=== PATIENT | female | born 1970 | race Caucasian/White ===

== ENCOUNTER 2018-12-11 21:46 | Emergency (ER) | payer OTHER, SELFPAY ==
[2018-12-11 22:26] LABS: Absolute Lymphocytes (CBC) 1.3 K/uL (0.7-4.9); Absolute Monocytes 0.5 K/uL (0.1-1.3); Absolute Neutrophil 2.1 K/uL (1.8-8.0); Basophils % 0.6 % (0-1.3); Eosinophils % 2.2 % (0-4.4); Hematocrit 27.5 % (36.0-45.0); Lymphocytes % 31.4 % (15.3-44.8); MPV 7.5 fL (7.6-11.3); Monocytes % 13.3 % (3.3-12.3)
[2018-12-11 22:29] LABS: Protime INR 0.93
[2018-12-11 22:46] LABS: ALT/SGPT 22 U/L (12-78); AST/SGOT 16 U/L (15-37); Albumin 3.3 g/dL (3.4-5.0); Alkaline Phosphatase 114 U/L (45-117); BUN Blood Urea Nitrogen 10 mg/dL (7-18); Bicarbonate 24 mmol/L (21-32); Bilirubin Direct < 0.1 mg/dL (0-0.2); Bilirubin Total 0.1 mg/dL (0.2-1.0); Glucose Level 69 mg/dL (74-106); Potassium 4.4 mmol/L (3.5-5.1); Protein, Total 6.7 g/dL (6.4-8.2); Sodium Level 144 mmol/L (136-145)
[2018-12-11 23:55] LABS: Anisocytosis 1+; Blood Morphology Comment NOTED (NOT SEEN); Platelet Estimate ADEQ; Urine White Blood Cell Casts OK
[2018-12-12 02:10] LABS: Urine Blood NEGATIVE (NEG); Urine Glucose NEGATIVE (NEG); Urine Protein NEGATIVE (NEG); Urine Specific Gravity <1.005 (1.005-1.030); Urine pH 5.5 (5.0-7.0)
[2018-12-12 02:29] LABS: Barbiturates NEGATIVE (NEGATIVE); Benzodiazepines NEGATIVE (NEGATIVE); Cocaine NEGATIVE (NEGATIVE); METHAMPHETAM NEGATIVE (NEGATIVE); Methadone NEGATIVE (NEGATIVE); Opiates NEGATIVE (NEGATIVE); Phencyclidine NEGATIVE (NEGATIVE); THC Cannibis NEGATIVE (NEGATIVE)
--- NOTE | 2018-12-12 03:11 | ER ---
Nurse's Notes [facility] Name: Edouard Nix Age: 48 yrs Sex: Female : 1970 Arrival Date: 12/11/2018 Time: 21:48 Bed 15 Private MD: Diagnosis: Suicidal ideations Presentation: 12/11 21:58 Presenting complaint: Patient states: I TOOK HALF A BOTTLE OF CELEXA BECAUSE I DONT [facility] WANT TO BE AT [facility] ANY MORE. 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 Transition of care: patient was not received from another setting of care. Onset of symptoms was December 11, 2018. Risk Assessment: Do you want to hurt yourself or someone else? Patient reports desire/thoughts of hurting themselves or someone else. Provider notified. Initial Sepsis Screen: Does the patient meet any 2 criteria? No. Patient's initial sepsis screen is negative. Does the patient have a suspected source of infection? No. Patient's initial sepsis screen is negative. Care prior to arrival: None. 21:58 Method Of Arrival: EMS: [facility] 4 21:58 Acuity: RIANNA 2 ls4 Triage Assessment: 22:18 General: Appears distressed, unkempt, Behavior is cooperative, flat. Pain: Denies pain. ls4 Neuro: Level of Consciousness is awake, alert, Oriented to person, place, time, situation. Cardiovascular: Reports None Denies chest pain, Heart tones S1 S2. Respiratory: Airway is patent Respiratory effort is even, unlabored, Respiratory pattern is regular. Historical: - Allergies: 22:01 Codeine; ls4 22:01 Morphine; ls4 22:01 Cymbalta; ls4 - Home Meds: 22:01 trazodone Oral [Active]; Seroquel Oral [Active]; gabapentin oral oral [Active]; Celexa ls4 Oral [Active]; - Immunization history:: Adult Immunizations up to date. - Social history:: Smoking status: Patient/guardian denies using tobacco. - Ebola Screening: : No symptoms or risks identified at this time. Screenin:20 Abuse screen: Denies threats or abuse. Denies injuries from another. Nutritional ls4 screening: No deficits noted. Tuberculosis screening: No symptoms or risk factors identified. Fall Risk None identified. Assessment: 23:00 General: Appears in no apparent distress. Behavior is calm, cooperative. Pain: Denies ea pain. Neuro: Level of Consciousness is awake, alert, obeys commands, Oriented to person, place, time, situation. Cardiovascular: Patient's skin is warm and dry. Respiratory: Airway is patent Respiratory effort is even, unlabored, Respiratory pattern is regular, symmetrical. Derm: Skin is pink, warm \T\ dry. Musculoskeletal: Circulation, motion, and sensation intact. 12/12 00:55 Reassessment: PT resting with eyes closed, respirations even and unlabored. No s/s of ea pain or discomfort noted at this time. Sitter at bedside. 01:50 Reassessment: Patient and/or family updated on plan of care and expected duration. Pain ea level reassessed. Pt resting with eyes closed. Respirations even and unlabored. No s/s of pain or discomfort noted at this time. Sitter at bedside. 02:00 Reassessment: Patient and/or family updated on plan of care and expected duration. Pain ea level reassessed. Pt resting with eyes closed respirations even and unlabored. Chest expansions even and symmetrical. No s/s of pain or discomfort noted at this time. Sitter remains at bedside. 02:48 Reassessment: Report given to Haleigh MONREAL at [facility]. ea 03:00 Reassessment: Patient and/or family updated on plan of care and expected duration. Pain ea level reassessed. Pt resting with eyes closed, respirations even and unlabored, chest expansions even and symmetrical. No s/s of pain or discomfort noted at this time. Sitter remains at bedside. 03:04 Reassessment: Report given to Kelsy MONREAL at [facility]. ea 04:00 Reassessment: Patient and/or family updated on plan of care and expected duration. Pain ea level reassessed. Pt resting with eyes closed respirations even and unlabored, chest expansions even and symmetrical. No s/s of pain or discomfort noted at this time. Sitter at bedside. 04:31 Reassessment: Report given to Chelle MONREAL at [facility]. ea 05:25 Reassessment: Patient and/or family updated on plan of care and expected duration. Pain ea level reassessed. Patient is alert, oriented x 3, equal unlabored respirations, skin warm/dry/pink. Report given to [facility]. Personal belongings given to EMS. Pt ambulating accompanied by EMS, pt tolerating well. Psych: 12/11 23:00 Subjective: Patient's mood is sad. Objective: Patient is cooperative. Interventions: ea Removed personal items and placed in bag. Patient placed in hospital gown. Suicide Risk Assessment: Sad Person Scale: Substance Abuse:. Safety Checks: Personal items have been removed. Door is open. No visitors are present at this time. Commitment: Patient will be a voluntary commitment. Vital Signs: 22:19 BP 123 / 77; Pulse 92; Resp 18; Temp 98.1(O); Pulse Ox 99% on R/A; Weight 72.57 kg; ls4 Pain 0/10; 12/12 01:30 BP 120 / 60; Pulse 80; Resp 18; Pulse Ox 99% ; ea 05:00 BP 120 / 70; Pulse 78; Resp 18; Temp 97.8; Pulse Ox 99% on R/A; Pain 0/10; ea ED Course: 12/11 21:48 Patient arrived in ED. ds1 21:52 Piyush Cortez PA is PHCP. cp 21:52 Conrad Chao MD is Attending Physician. cp 21:57 Kelsy Arroyo, JOCELIN is Primary Nurse. ls4 21:59 Triage completed. ls4 22:19 Arm band placed on right wrist. EKG completed in triage. Results shown to MD. ls4 22:20 Patient has correct armband on for positive identification. Bed in low position. Call ls4 light in reach. Side rails up X 1. SUICIDE PRECAUTIONS IN PLACE. ONE TO ONE SITTER AT DOOR. ALL BELONGINGS REMOVED. 2 SUITCASES, BACKPACK AND BELONGINGS BAG. POISON CONTROL CALLED. POISON CONTROL SPOKE WITH FLOYD . ADVISES TO CHECK ACET AND ASA AT 0100. PT ON MONITOR AND GIVE FLUIDS. WATCH FOR SIGNS OF SERATONIN SYNDROME. MONITOR QTC AND QRS INTERVALS. 22:32 No provider procedures requiring assistance completed. Inserted saline lock: 18 gauge ls4 in right antecubital area, using aseptic technique. Blood collected. 22:34 secured entrance monitor on. Pulse ox on. NIBP on. ls4 22:34 Initial lab(s) drawn, by me, sent to lab. Urine collected: clean catch specimen, clear, ls4 EKG done, by ED staff, reviewed by Piyush TRUONG. Patient maintains SpO2 saturation greater than 95% on room air. 22:37 Basic Metabolic Panel Sent. ls4 22:37 CBC with Diff Sent. ls4 22:37 Hepatic Function Sent. ls4 22:38 PT-INR Sent. ls4 22:38 Salicylate Sent. ls4 22:38 Urine Drug Screen Sent. ls4 22:38 Acetaminophen Sent. ls4 02 00:54 Paula Liu, RN is Primary Nurse. ea 05:20 IV discontinued, intact, bleeding controlled, No redness/swelling at site. Pressure ea dressing applied. Administered Medications: No medications were administered Outcome: 03:11 ER care complete, transfer ordered by MD. cp 04:00 Instructed on the need for transfer. ea 05:28 Transferred by ground EMS to other acute care facility: [facility]. Transfer form ea completed. 05:29 Condition: stable ea 05:29 Patient left the ED. ea Signatures: Haylee Valdez ds1 Piyush Cortez PA PA cp Antunez, Elena, Kelsy Aguirre RN, ea, RN RN ls4 Corrections: (The following items were deleted from the chart) 12/11 22:32 22:19 BP 123 / 77; Pulse 92bpm; Resp 18bpm; Pulse Ox 99% RA; Temp 98.1F Oral; Pain ls4 0/10; ls4 22:36 22:20 POISON CONTROL SPOKE WITH FLOYD ls4 ls4 12/12 05:29 04:00 Condition: stable ea ea 05:29 04:00 Transferred by ground EMS to other acute care facility: [facility]. Transfer ea form completed. ea
--- NOTE | 2018-12-12 03:11 | EDPHYS ---
Physician Documentation [facility] Name: Edouard iNx Age: 48 yrs Sex: Female : 1970 Arrival Date: 12/11/2018 Time: 21:48 Bed 15 Private MD: ED Physician Conrad Chao HPI: 12/11 21:56 This 48 yrs old Female presents to ER via Unassigned with complaints of cp Suicidal Ideation. 21:56 The patient presents to the emergency department with a history of a suicide gesture, cp where the patient took pills/medications, unknown number of antidepressant: celexa, suicide ideation. 21:56 Onset: The symptoms/episode began/occurred today, about 2100, after dinner. Past cp psychiatric history: the patient has a previous inpatient psychiatric history, last week, at [facility], the patient's last psychiatric treatment was last week. Associated signs and symptoms: Pertinent positives; depression, Pertinent negatives: abdominal pain, chest pain, delusions, hallucinations, headache, homicidal ideation, substance abuse, vomiting. Severity of symptoms: in the emergency department the symptoms are unchanged. Historical: - Allergies: 22:01 Codeine; ls4 22:01 Morphine; ls4 22:01 Cymbalta; ls4 - Home Meds: 22:01 trazodone Oral [Active]; Seroquel Oral [Active]; gabapentin oral oral [Active]; Celexa ls4 Oral [Active]; - Immunization history:: Adult Immunizations up to date. - Social history:: Smoking status: Patient/guardian denies using tobacco. - Ebola Screening: : No symptoms or risks identified at this time. ROS: 22:00 Constitutional: Negative for body aches, chills, fever, poor PO intake. cp 22:00 Eyes: Negative for injury, pain, redness, and discharge. cp 22:00 ENT: Negative for drainage from ear(s), ear pain, sore throat, difficulty swallowing, difficulty handling secretions. 22:00 Cardiovascular: Negative for chest pain, edema, palpitations. 22:00 Respiratory: Negative for cough, shortness of breath, wheezing. 22:00 Abdomen/GI: Negative for abdominal pain, nausea, vomiting, and diarrhea, anorexia, black/tarry stool, rectal bleeding. 22:00 Back: Negative for pain at rest, pain with movement, radiated pain. 22:00 : Negative for urinary symptoms, vaginal bleeding, vaginal discharge. 22:00 Skin: Negative for cellulitis, rash. 22:00 Neuro: Negative for dizziness, headache, syncope, weakness. 22:00 Psych: Positive for depression, suicidal ideation, Negative for auditory hallucinations, visual hallucinations, homicidal ideation. 22:00 All other systems are negative. Exam: 22:15 Constitutional: The patient appears in no acute distress, alert, awake, cp non-diaphoretic, non-toxic, well developed, well nourished. 22:15 Head/Face: Normocephalic, atraumatic. cp 22:15 Eyes: Periorbital structures: appear normal, Pupils: equal, round, and reactive to cp light and accomodation, Extraocular movements: intact throughout, Conjunctiva: normal, no exudate, no injection, Sclera: no appreciated abnormality, Lids and lashes: appear normal, bilaterally. 22:15 ENT: External ear(s): are unremarkable, Ear canal(s): are normal, clear, TM's: bulging, cp is not appreciated, bilaterally, dullness, bilaterally, erythema, is not appreciated, bilaterally, Nose: is normal, Mouth: Lips: moist, Oral mucosa: pink and intact, moist, Posterior pharynx: is normal, airway is patent, no erythema, no exudate, Voice: is normal. 22:15 Neck: ROM/movement: is normal, is supple, without pain, no range of motions limitations, no nuchal rigidity. 22:15 Chest/axilla: Inspection: normal, Palpation: is normal, no crepitus, no tenderness. 22:15 Cardiovascular: Rate: normal, Rhythm: regular, Edema: is not appreciated, JVD: is not appreciated. 22:15 Respiratory: the patient does not display signs of respiratory distress, Respirations: normal, no use of accessory muscles, no retractions, no splinting, no tachypnea, labored breathing, is not present, Breath sounds: are clear throughout, no decreased breath sounds, no stridor, no wheezing. 22:15 Abdomen/GI: Inspection: abdomen appears normal, Palpation: abdomen is soft and non-tender, in all quadrants, Rectal exam: Stool: finley. 22:15 Back: pain, is absent, ROM is normal. 22:15 Skin: cellulitis, is not appreciated, no rash present. 22:15 Neuro: Orientation: to person, place \T\ time. Mentation: is normal, Cerebellar function: is grossly normal, Motor: moves all fours, strength is normal, Sensation: is normal. 12/12 02:11 ECG was reviewed by the Attending Physician. Vital Signs: 12/11 22:19 BP 123 / 77; Pulse 92; Resp 18; Temp 98.1(O); Pulse Ox 99% on R/A; Weight 72.57 kg; ls4 Pain 0/10; 12/12 01:30 BP 120 / 60; Pulse 80; Resp 18; Pulse Ox 99% ; ea 05:00 BP 120 / 70; Pulse 78; Resp 18; Temp 97.8; Pulse Ox 99% on R/A; Pain 0/10; ea MDM: 12/11 21:52 Patient medically screened. 12/12 02:55 Data reviewed: vital signs, nurses notes, lab test result(s), EKG. 02:55 Test interpretation: by ED physician or midlevel provider: ECG. 12/11 21:52 Order name: Acetaminophen cp 12/11 21:52 Order name: Basic Metabolic Panel 12/11 21:52 Order name: CBC with Diff cp 12/11 21:52 Order name: ETOH Level cp 12/11 21:52 Order name: Hepatic Function cp 12/11 21:52 Order name: PT-INR cp 12/11 21:52 Order name: Ptt, Activated cp 12/11 21:52 Order name: Salicylate cp 12/11 21:52 Order name: Urine Drug Screen 12/11 22:30 Order name: CBC with Automated Diff; Complete Time: 01:13 EDMS 12/11 23:48 Interpretation: Normal except: WBC 4.0; RBC 3.60; HGB 8.3; HCT 27.5; MCV 76.4; MCH cp 23.2; MCHC 30.4; RDW 21.2; MPV 7.5; MN% 13.3. 12/11 22:31 Order name: Protime (+INR); Complete Time: 23:47 EDMS 12/11 22:31 Order name: PTT, Activated Partial Thromb; Complete Time: 23:47 EDMS 12/11 22:37 Order name: Salicylates Level; Complete Time: 23:47 EDMS 12/11 22:47 Order name: Basic Metabolic Panel; Complete Time: 23:47 EDMS 12/12 02:19 Interpretation: Normal except: CL 114; GLUC 69; CA 8.1. cp 12/11 22:47 Order name: Liver (Hepatic) Function; Complete Time: 23:47 EDMS 12/12 01:14 Interpretation: Normal except: BILIT 0.1; ALB 3.3; A/G 1.0. cp 12/11 22:47 Order name: Acetaminophen Level; Complete Time: 23:47 EDMS 12/12 01:14 Interpretation: Abnormal: ACETA < 2.0. cp 12/11 22:56 Order name: Alcohol Serum/Plasma; Complete Time: 23:47 EDMS 12/11 23:47 Interpretation: ETOH 4; Reviewed. cp 12/11 23:55 Order name: CBC Smear Scan; Complete Time: 01:13 EDMS 12/12 01:23 Order name: Acetaminophen 12/12 01:23 Order name: Asprin 12/12 01:35 Order name: Hematocrit 12/12 01:35 Order name: Hemoglobin 12/12 02:04 Order name: Urine Dipstick--Ancillary (enter results) tx 12/12 02:04 Order name: Urine --Ancillary (enter results) tx 12/12 02:10 Order name: Urine Dipstick-Ancillary; Complete Time: 02:18 EDMS 12/12 02:19 Order name: Hemoglobin; Complete Time: 02:51 EDMS 12/12 02:51 Interpretation: Reviewed. 12/12 02:19 Order name: Hematocrit; Complete Time: 02:51 EDMS 12/12 02:52 Interpretation: Reviewed. 12/12 02:27 Order name: Salicylates Level; Complete Time: 02:51 EDMS 12/12 02:28 Order name: Test Serum, Qualitat; Complete Time: 02:51 EDMS 12/12 02:29 Order name: Urine Drug Screen; Complete Time: 02:51 EDMS 12/11 21:52 Order name: EKG; Complete Time: 21:53 cp 12/11 21:52 Order name: EKG - Nurse/Tech; Complete Time: 22:43 cp 12/11 21:52 Order name: IV Saline Lock; Complete Time: 22:37 cp 12/11 21:52 Order name: Labs collected and sent; Complete Time: 22:37 cp 12/11 21:52 Order name: Urine Dipstick-Ancillary (obtain specimen); Complete Time: 22:37 cp 12/12 01:23 Order name: EKG; Complete Time: 01:24 cp 12/12 01:23 Order name: EKG - Nurse/Tech; Complete Time: 02:48 cp 12/12 01:24 Order name: Urine Test (obtain specimen); Complete Time: 02:48 cp 12/12 02:36 Order name: Acetaminophen Level; Complete Time: 02:51 EDMS EC:11 Rate is 66 beats/min. Rhythm is regular. CO interval is normal. QRS interval is normal. cp QT interval is normal. T waves are Flattened in lead III. Interpreted by me. Reviewed by me. Administered Medications: No medications were administered Disposition: 20:40 Co-signature as Attending Physician, Conrad Chao MD. Disposition: 12/12/18 03:11 Transfer ordered to Psych Facility. Diagnosis is Suicidal ideations. - Reason for transfer: Higher level of care. - Accepting physician is Doctor. - Condition is Stable. - Problem is new. - Symptoms are unchanged. Signatures: Dispatcher [employer] EDMS Piyush Cortez PA PA cp Antunez, Elena RN Conrad Paredes ea, MD MD Kelsy Arroyo RN RN ls4 Corrections: (The following items were deleted from the chart) : 01:14 Normal except: CL 114; GLUC 69. cp cp 05:29 03:11 12/12/2018 03:11 Transfer ordered to Psych Facility. Diagnosis is Suicidal ea ideations. Reason for transfer: Higher level of care. Accepting physician is Doctor. Condition is Stable. Problem is new. Symptoms are unchanged. cp
--- NOTE | 2018-12-12 09:18 | EKG ---
Test Date: 2018-12-11 Test Time: 22:25:46 Sheet Writer: [id number] MEASUREMENT RESULTS: Intervals: Rate: 75 WV: 134 QRSD: 94 QT: 390 QTc: 435 Calypso: P: 45 WV: 134 QRS: 46 T: -5 INTERPRETIVE STATEMENTS: Normal sinus rhythm Normal ECG No previous ECG available for comparison Electronically Signed On 12-12-18 08:32:57 [employer]ER[employer]IC TILER by Khoi Aleman
== END 2018-12-12 05:29 ==
LOC: ER 21:46
DX: R45.851 Suicidal ideations (principal); F32.9 Major depressive disorder, single episode, unspecified; Z88.5 Allergy status to narcotic agent; Z88.8 Allergy status to other drugs, medicaments and biological substances
CPT/HCPCS: 36415; 80048; 80076; 80307; 80320; 80329; 81003; 84703; 85014; 85018; 85025; 85610; 85730; 93005; 99285

== ENCOUNTER 2019-02-24 09:57 | Emergency (ER) | payer OTHER ==
--- OUTSIDE RECORDS SUMMARY | 2019-02-24 10:00 | XMS REPORT ---
:1970 [facility] [address] [place] [address] Care Team Providers Name Role Phone UNKNOWN, REFFERING Primary Care Provider Unavailable LISA TINEO M.D. Unavailable Unavailable Problems This patient has no known problems. Allergies, Adverse Reactions, Alerts This patient has no known allergies or adverse reactions. Medications This patient has no known medications. Results Test Description Test Time Test Comments Text Results Atomic Results Result Comments POC Glucose, Blood 2017-08-21 10:47:00 Test Item Value Reference Range Comments POC Glucose (test code=POCGLUC) 57 mg/dL 70-115 If you consider your patient critically ill, the Demetra Accu-Chek InformII metershould not be used for Glucose determinations.Draw a venous Glucose and send to the Main Lab for Analysis. Urinalysis [id number] 20:26:00 Test Item Value Reference Range Comments Color (test code=COLOR) Straw Yellow,Straw,Pl yellow Clarity (test code=CLAR) Clear Clear Specific Garrison (test code=SPGR) 1.008 1.001-1.035 pH (test code=PH) 7.0 5.0-9.0 Ketone (test code=KET) Negative mg/dL Negative Glucose (test code=GLUCUR) Negative mg/dL Negative Protein (test code=PROT) Negative mg/dL Negative Bilirubin (test code=BILI) Negative mg/dL Negative Occult Blood (test code=UDOB) Negative Negative Urobilinogen (test code=UROB) 0.2 mg/dL 0.2-1.0 Nitrite (test code=NIT) Negative Negative Leuk Esterase (test code=LEUK) Small Negative Micros Exam (test code=MEXAM) Indicated Epithelial Cells (test code=EPI) 0-2 /LPF 0-30 WBC, Urine (test code=UWBC) 0-1 /HPF 0-5 RBC, Urine (test code=URBC) None Seen /HPF 0-5 Bacteria (test code=BACT) None /HPF POC Glucose, [id number] 11:08:00 Test Item Value Reference Range Comments POC Glucose (test 86 mg/dL 70-115 If you consider your patient code=POCGLUC) critically ill, the Demetra Accu-Chek InformII metershould not be used for Glucose determinations.Draw a venous Glucose and send to the Main Lab for Analysis. Culture, [id number] 08:20:00Specimen: UrineCollected: 08/14/2017 21:15 Status: Final Last Updated: 08/17/2017 08:20 Culture Result (Final) (Final ) 08/16/17 No growth 24 hours 08/17/17 No growth 48 hoursPOC Glucose, [id number] 11:29:00 Test Item Value Reference Range Comments POC Glucose (test code=POCGLUC) 48 mg/dL 70-115 Notify RN or RPR, [id number] 13:54:00 Test Item Value Reference Range Comments RPR (test code=RPR) Non-Reactive Non-Reactive Thyroid Stimulating Hormone (TSH)2017-08-14 07:40:00 Test Item Value Reference Range Comments TSH (test code=TSH) 0.67 mIU/mL 0.270-4.200 Lipid [id number] 07:39:00 Test Item Value Reference Range Comments Cholesterol (test 153 mg/dL 0-200 code=CHOL) Triglycerides (test 110 mg/dL 9-200 code=TRIG) HDL (test code=HDL) 48 mg/dL 50-60 Chol/HDL (test 3.2 Ratio 0.0-4.4 code=CHOLPHDL) LDL, Calculated (test 83 0-130 (NOTE)RISK OF HEART code=LDLC) DISEASEPublished by Bangladeshi Heart AssociationAnalyte Optimal Boderline Increased RiskCHOL <200 200-239 >240TRIG <150 150-199 >200HDL Male: >60 <40HDL Female: >60 <50LDL <100 130-159 >160LDL NEAR OPTIMAL IS 100-129 VLDL (test code=VLDL) 22 mg/dL 5-40 LDL/HDL (test code=LDLPHDL) 2 BHCG, Serum, [id number] 07:24:00 Test Item Value Reference Range Comments Preg Qual [Se] (test code=BSHCG) Negative Negative CBC with [id number] 14:31:00 Test Item Value Reference Range Comments WBC (test code=WBC) 3.1 K/cumm 4.4-10.5 RBC (test code=RBC) 3.66 M/cumm 3.75-5.20 Hemoglobin (test code=HGB) 8.6 gm/dL 12.2-14.8 Hematocrit (test code=HCT) 29.6 % 36.5-44.4 MCV (test code=MCV) 80.8 fL 80-100 MCH (test code=MCH) 23.4 pg 27.0-32.5 MCHC (test code=MCHC) 29.0 g/dL 32.0-37.5 RDW (test code=RDW) 19.2 % 11.5-14.5 Platelet Count (test code=PLTCT) 308 K/cumm 140-440 MPV (test code=MPV) 7.4 fL Diff Method (test code=DIFFM) Auto Neutrophil (test code=NEUT) 64.0 % 36-70 Lymphocyte (test code=LYMPH) 28.2 % 12-44 Monocyte (test code=MONO) 5.7 % 0-11 Eosinophil (test code=EOS) 1.8 % 0-7 Basophil (test code=BASO) 0.2 % 0-2 Neutro Abs (test code=ANEUT) 2.0 K/cumm 1.6-7.4 Lymph Abs (test code=ALYMPH) 0.9 K/cumm 0.5-4.6 Douglas Abs (test code=AMONO) 0.2 K/cumm 0.0-1.2 Eos Abs (test code=AEOS) 0.06 K/cumm 0.00-0.74 Baso Abs (test code=ABASO) 0.0 K/cumm 0.00-0.21 Anisocytosis (test code=ANISO) Slight Microcytosis (test code=MICRO) Slight Hypochromic (test code=HYPO) Slight Urinalysis [id number] 14:29:00 Test Item Value Reference Range Comments Color (test code=COLOR) Yellow Yellow,Straw,Pl yellow Clarity (test code=CLAR) Clear Clear Specific Garrison (test code=SPGR) 1.017 1.001-1.035 pH (test code=PH) 6.5 5.0-9.0 Ketone (test code=KET) Negative mg/dL Negative Glucose (test code=GLUCUR) Negative mg/dL Negative Protein (test code=PROT) Negative mg/dL Negative Bilirubin (test code=BILI) Negative mg/dL Negative Occult Blood (test code=UDOB) Negative Negative Urobilinogen (test code=UROB) 1.0 mg/dL 0.2-1.0 Nitrite (test code=NIT) Negative Negative Leuk Esterase (test code=LEUK) Large Negative Micros Exam (test code=MEXAM) Indicated Epithelial Cells (test code=EPI) 3-5 /LPF 0-30 WBC, Urine (test code=UWBC) 10-14 /HPF 0-5 RBC, Urine (test code=URBC) 0-3 /HPF 0-5 Bacteria (test code=BACT) Few /HPF Comprehensive Metabolic [id number] 14:26:00 Test Item Value Reference Range Comments Sodium (test code=NA) 142 mmol/L 135-145 Potassium (test code=K) 3.7 mmol/L 3.5-5.1 Chloride (test code=CL) 104 mmol/L 98-105 Carbon Dioxide (test 28 mmol/L 22-29 code=CO2) Glucose (test code=GLU) 86 mg/dL 70-115 Blood Urea Nitrogen 11 mg/dL 6-20 (test code=BUN) Creatinine (test 0.7 mg/dL 0.5-0.9 code=CREAT) Calcium (test code=CA) 9.2 mg/dL 8.3-10.5 Prot Total (test 6.9 g/dL 6.4-8.3 code=TP) Albumin (test code=ALB) 4.1 g/dL 3.5-5.2 A/G Ratio (test 1.5 Ratio code=AGRATIO) Globulin (test 2.8 2.9-3.1 code=GLOB) Bili Total (test <0.1 mg/dL 0.1-0.9 code=TBIL) Alk Phos (test 112 U/L 35-104 code=APHOS) AST (test code=AST) 23 U/L 1-32 ALT (test code=ALT) 15 U/L 1-33 BUN/Creatinine Ratio 15.7 (test code=BCRATIO) Anion Gap (test 10 mmol/L 7-16 code=AGAP) Estimated GFR (test >60 mL/min/1.73m2 eGFR (estimated Glomerular code=GFR) Filtration Rate) is an estimated value,calculated from the patient's serum creatinine using the MDRD equation.It is NOT the patient's actual GFR. The eGFR provides a more clinicallyuseful measure of kidney disease than serum creatinine alone.This calculation takes sex and race into account, if the informationis provided. If the race is not provided, and the patient isAfrican-Bangladeshi, multiply by 1.212. If sex is not provided, and thepatient is female, multiply by 0.742. Results for patients <18 years ofage have not been validated by the MDRD study and should be interpretedwith caution.eGFR Result Interpretation:eGFR > or=60 is in the Normal RangeeGFR < 60 may mean kidney diseaseeGFR < 15 may mean kidney failureRanges recommended by the National Kidney Foundation,http://nkdep.nih .gov [id number] 14:22:00 Test Item Value Reference Range Comments Amphetamine (test code=AMPH) Negative Negative For diagnostic purposes only, positive results should always be assessedin conjunctionwith the patient's medical history,clinical examination and otherfindings.To fulfill legal requirements, a more specific alternate chemical methodmust be used inorder to obtain a Confirmed analytical result. GC/MS is the preferred confirmatory method. Barbiturates (test code=KELSIE) Negative Negative Benzodiazepine (test Negative Negative code=EPIFANIO) Cocaine (test code=COCA) Negative Negative Methadone (test code=MTHD) Negative Negative Opiates (test code=OPIA) Negative Negative PCP (test code=PCP) Negative Negative Propoxyphene (test Negative Negative code=PROPOX) THC (test code=THC) Negative Negative Alcohol, Urine (test <0.01 g/dL 0.00-0.01 code=ETOHU)
[2019-02-24 10:29] LABS: Protime INR 0.9
[2019-02-24 10:33] LABS: Absolute Monocytes 0.5 K/uL (0.1-1.3); Absolute Neutrophil 1.4 K/uL (1.8-8.0); Basophils % 0.9 % (0-1.3); Eosinophils % 3.3 % (0-4.4); Hematocrit 26.5 % (36.0-45.0); Lymphocytes % 32.6 % (15.3-44.8); Monocytes % 16.9 % (3.3-12.3); RBC Red Blood Cell Count 3.62 M/uL (3.86-4.86)
--- NOTE | 2019-02-24 10:34 | RAD REPORT ---
EXAM DESCRIPTION: RAD - Chest Single View - 02/24/2019 10:27 am CLINICAL HISTORY: Shortness of breath, hypoglycemia COMPARISON: None. TECHNIQUE: AP portable chest image was obtained 1025 hours . FINDINGS: No focal infiltrate or mass. Interstitial markings are prominent with the baseline for the patient unknown. Minimal interstitial edema or infiltrate could be masked. A significant acute lung parenchymal process is doubtful. Heart and vasculature are normal. No measurable pleural effusion and no pneumothorax. No acute bony abnormality seen. No acute aortic findings suspected. IMPRESSION: No acute cardiopulmonary process. Interstitial markings are prominent but favored to be baseline for the patient. No comparison was benjamin ilable.
[2019-02-24] MEDS ORDERED: NA CHLORIDE 0.9% 1,000 ML ONE (10:40)
[2019-02-24 11:01] LABS: ALT/SGPT 24 U/L (12-78); AST/SGOT 25 U/L (15-37); Albumin 3.2 g/dL (3.4-5.0); Alkaline Phosphatase 102 U/L (45-117); BUN Blood Urea Nitrogen 10 mg/dL (7-18); Bicarbonate 27 mmol/L (21-32); Bilirubin Direct < 0.1 mg/dL (0-0.2); Bilirubin Total 0.2 mg/dL (0.2-1.0); Glucose Level 60 mg/dL (74-106); Magnesium 2.3 mg/dL (1.8-2.4); NT PRO-BNP 117 pg/mL (<125); Potassium 3.8 mmol/L (3.5-5.1); Protein, Total 6.4 g/dL (6.4-8.2); Sodium Level 143 mmol/L (136-145); Troponin (Emerg Dept Use Only) < 0.02 ng/mL (0.0-0.045)
[2019-02-24 11:15] LABS: Anisocytosis 1+; Blood Morphology Comment NOTED (NOT SEEN); Platelet Estimate ADEQ
[2019-02-24 11:16] LABS: Rouleau NOTED
--- NOTE | 2019-02-24 13:33 | ER ---
Nurse's Notes [facility] Name: Edouard Nix Age: 48 yrs Sex: Female : 1970 Arrival Date: 02/24/2019 Time: 10:00 Bed 6 Private MD: Diagnosis: Hypoglycemia, unspecified;Weakness;Hypotension;Anemia, unspecified Presentation: 02/24 09:56 Presenting complaint: EMS states: called out at [facility] for hypoglycemia. Staff sv stated BS was 27 and was able to get her to drink OJ with sugar and BS went to 72. On EMS arrival BS-72 BP 93/57 HR-55, RR-12 97% RA. Transition of care: patient was not received from another setting of care. Onset of symptoms was February 24, 2019. Risk Assessment: Do you want to hurt yourself or someone else? Patient reports no desire to harm self or others. Initial Sepsis Screen: Does the patient meet any 2 criteria? No. Patient's initial sepsis screen is negative. Does the patient have a suspected source of infection? No. Patient's initial sepsis screen is negative. Care prior to arrival: Glucose check: 72. 09:56 Method Of Arrival: EMS: [facility] sv 10:02 Acuity: RIANNA 2 sv Historical: - Allergies: 10:08 Codeine; sv 10:08 Cymbalta; sv 10:08 Morphine; sv 10:08 ambien; sv 10:08 PENICILLINS; sv - Home Meds: 10:36 Celexa 40 mg oral tab once daily [Active]; hydroxyzine HCl 50 mg Oral tab Q6h prn sv [Active]; Seroquel 300 mg oral tab nightly [Active]; trazodone 100 mg oral tab QHS prn [Active]; gabapentin 600 mg oral tab 3 times per day [Active]; - PMHx: 10:08 Osteoporosis; Dumping syndrome; Non-hodgkins lymphoma; sv - PSHx: 10:08 stomach removed; sv - Immunization history:: Adult Immunizations up to date. - Family history:: not pertinent. - Social history:: Smoking status: unknown. - Ebola Screening: : No symptoms or risks identified at this time. Screenin:10 Abuse screen: Denies threats or abuse. Denies injuries from another. Nutritional sv screening: No deficits noted. Tuberculosis screening: No symptoms or risk factors identified. Fall Risk None identified. Assessment: 10:20 Reassessment: Patient appears in no apparent distress at this time. No changes from sv previously documented assessment. Patient and/or family updated on plan of care and expected duration. Pain level reassessed. Patient is alert, oriented x 3, equal unlabored respirations, skin warm/dry/pink. Pt given a breakfast tray. 11:15 Reassessment: Patient appears in no apparent distress at this time. No changes from sv previously documented assessment. Patient and/or family updated on plan of care and expected duration. Pain level reassessed. Patient is alert, oriented x 3, equal unlabored respirations, skin warm/dry/pink. 12:34 Reassessment: Patient appears in no apparent distress at this time. Patient and/or sv family updated on plan of care and expected duration. Pain level reassessed. Patient is alert, oriented x 3, equal unlabored respirations, skin warm/dry/pink. Pt given lunch tray. 13:51 Reassessment: Patient is alert, oriented x 3, equal unlabored respirations, skin aa5 warm/dry/pink. Awaiting on transportation back to [facility]. . Vital Signs: 10:08 BP 87 / 60; Pulse 58; Resp 16; Pulse Ox 96% ; Weight 72.57 kg; Height 5 ft. 10 in. sv (177.80 cm); Pain 0/10; 10:10 Temp 97.5(TE); em1 11:00 BP 89 / 56; Pulse 56 MON; Resp 16; Pulse Ox 98% on R/A; sv 11:21 BP 90 / 62; Pulse 57; Resp 12; Pulse Ox 97% ; sv 12:08 BP 89 / 61; Pulse 53; Resp 12; Pulse Ox 95% ; sv 13:33 BP 114 / 71; Pulse 57; Resp 13; Pulse Ox 97% on R/A; em1 13:51 BP 113 / 68; Pulse 60; Resp 16 S; Temp 97.8(TE); Pulse Ox 99% on R/A; Pain 0/10; aa5 10:08 Body Mass Index 22.96 (72.57 kg, 177.80 cm) sv 11:00 Sinus bradycardia sv 11:21 Sinus bradycardia sv ED Course: 10:00 Patient arrived in ED. bd 10:00 Deborah Cullen, JOCELIN is Primary Nurse. sv 10:00 Piyush Ortega MD is Attending Physician. madeleine 10:03 Triage completed. sv 10:06 EKG done, by career and technology education teacher. reviewed by Piyush Ortega MD. at1 10:09 Initial lab(s) drawn, by mo, sent to lab. Inserted saline lock: 20 gauge in right em1 forearm, using aseptic technique. Blood collected. 10:10 Warm blanket given. em1 10:10 Patient has correct armband on for positive identification. Bed in low position. Call sv light in reach. Side rails up X2. stamp machine servicer on. Pulse ox on. NIBP on. Head of bed elevated. 10:10 Arm band placed on. sv 10:11 Basic Metabolic Panel Sent. sv 10:16 Diet tray given. em1 10:22 X-ray(s) taken. sv 10:25 X-ray completed. Portable x-ray completed in exam room. Patient tolerated procedure mh1 well. 10:26 XRAY Chest (1 view) In Process Unspecified. EDMS 12:57 Warm blanket given. Diet tray given. em1 13:17 orthostatics : laying ; 114/73 83 sitting : 131/77 94 standing : 138/77 97. kj1 13:51 No provider procedures requiring assistance completed. IV discontinued, intact, aa5 bleeding controlled, No redness/swelling at site. Pressure dressing applied. Administered Medications: 10:31 Drug: NS 0.9% 1000 ml Route: IV; Rate: 1 bolus; Site: right forearm; sv 12:10 Follow up: Response: No adverse reaction; IV Status: Completed infusion; IV Intake: sv 1000ml Point of Care Testing: Blood Glucose: 10:02 Blood Glucose: 78 mg/dL; sv 11:15 Blood Glucose: 138 mg/dL; sv 12:34 Blood Glucose: 84 mg/dL; sv 13:33 Blood Glucose: 114 mg/dL; em1 Ranges: Intake: 12:10 IV: 1000ml; Total: 1000ml. sv Outcome: 13:32 Discharge ordered by . madeleine 13:53 Discharged to [facility]hab [facility] aa5 13:53 Condition: improved 13:53 Discharge instructions given to patient, Instructed on discharge instructions, follow up and referral plans. Demonstrated understanding of instructions, follow-up care. 14:02 Patient left the ED. sv Signatures: Dispatcher [employer] EDMS Madhuri Noe Stephanie, RN RN sv Anderson, Corey, MD MD cha Harvey, Martha 1 Angelo Emanuel 1 Marly Braden RN RN aa5 Marilee Rodney, employee benefits administrator EKG Tat1 Dimple Patricia kj1 Corrections: (The following items were deleted from the chart) 11:21 11:11 BP 89 / 56; Pulse 56bpm; Monitor: Sinus bradycardiaResp 16bpm; Pulse Ox 98% RA; svsv
--- NOTE | 2019-02-24 13:33 | EDPHYS ---
Physician Documentation [facility] Name: Edouard Nix Age: 48 yrs Sex: Female : 1970 Arrival Date: 02/24/2019 Time: 10:00 Bed 6 Private MD: ED Physician Piyush Ortega HPI: 02/24 10:22 This 48 yrs old Female presents to ER via EMS with complaints of Low Blood madeleine Sugar, Hypotension. 10:22 The patient or guardian reports hypoglycemia. Onset: The symptoms/episode madeleine began/occurred this morning, today. Associated signs and symptoms: Pertinent positives: None. Current symptoms: In the emergency department the patient's symptoms have improved. The patient has experienced similar episodes in the past, several times. Historical: - Allergies: 10:08 Codeine; sv 10:08 Cymbalta; sv 10:08 Morphine; sv 10:08 ambien; sv 10:08 PENICILLINS; sv - Home Meds: 10:36 Celexa 40 mg oral tab once daily [Active]; hydroxyzine HCl 50 mg Oral tab Q6h prn sv [Active]; Seroquel 300 mg oral tab nightly [Active]; trazodone 100 mg oral tab QHS prn [Active]; gabapentin 600 mg oral tab 3 times per day [Active]; - PMHx: 10:08 Osteoporosis; Dumping syndrome; Non-hodgkins lymphoma; sv - PSHx: 10:08 stomach removed; sv - Immunization history:: Adult Immunizations up to date. - Family history:: not pertinent. - Social history:: Smoking status: unknown. - Ebola Screening: : No symptoms or risks identified at this time. ROS: 10:22 Constitutional: Negative for fever, chills, and weight loss, Eyes: Negative for injury, madeleine pain, redness, and discharge, ENT: Negative for injury, pain, and discharge, Neck: Negative for injury, pain, and swelling, Cardiovascular: Negative for chest pain, palpitations, and edema, Respiratory: Negative for shortness of breath, cough, wheezing, and pleuritic chest pain, Abdomen/GI: Negative for abdominal pain, nausea, vomiting, diarrhea, and constipation, Back: Negative for injury and pain, : Negative for injury, bleeding, discharge, and swelling, MS/Extremity: Negative for injury and deformity, Skin: Negative for injury, rash, and discoloration, Psych: Negative for depression, anxiety, suicide ideation, homicidal ideation, and hallucinations, Allergy/Immunology: Negative for hives, rash, and allergies, Endocrine: Negative for neck swelling, polydipsia, polyuria, polyphagia, and marked weight changes, Hematologic/Lymphatic: Negative for swollen nodes, abnormal bleeding, and unusual bruising. 10:22 Neuro: Positive for weakness. Exam: 10:22 Constitutional: This is a well developed, well nourished patient who is awake, alert, madeleine and in no acute distress. Head/Face: Normocephalic, atraumatic. Eyes: Pupils equal round and reactive to light, extra-ocular motions intact. Lids and lashes normal. Conjunctiva and sclera are non-icteric and not injected. Cornea within normal limits. Periorbital areas with no swelling, redness, or edema. ENT: Nares patent. No nasal discharge, no septal abnormalities noted. Tympanic membranes are normal and external auditory canals are clear. Oropharynx with no redness, swelling, or masses, exudates, or evidence of obstruction, uvula midline. Mucous membranes moist. Neck: Trachea midline, no thyromegaly or masses palpated, and no cervical lymphadenopathy. Supple, full range of motion without nuchal rigidity, or vertebral point tenderness. No Meningismus. Chest/axilla: Normal chest wall appearance and motion. Nontender with no deformity. No lesions are appreciated. Cardiovascular: Regular rate and rhythm with a normal S1 and S2. No gallops, murmurs, or rubs. Normal PMI, no JVD. No pulse deficits. Respiratory: Lungs have equal breath sounds bilaterally, clear to auscultation and percussion. No rales, rhonchi or wheezes noted. No increased work of breathing, no retractions or nasal flaring. Abdomen/GI: Soft, non-tender, with normal bowel sounds. No distension or tympany. No guarding or rebound. No evidence of tenderness throughout. Back: No spinal tenderness. No costovertebral tenderness. Full range of motion. Skin: Warm, dry with normal turgor. Normal color with no rashes, no lesions, and no evidence of cellulitis. MS/ Extremity: Pulses equal, no cyanosis. Neurovascular intact. Full, normal range of motion. Neuro: Awake and alert, GCS 15, oriented to person, place, time, and situation. Cranial nerves II-XII grossly intact. Motor strength 5/5 in all extremities. Sensory grossly intact. Cerebellar exam normal. Normal gait. Psych: Awake, alert, with orientation to person, place and time. Behavior, mood, and affect are within normal limits. 10:24 Musculoskeletal/extremity: DVT Exam: No signs of deep vein thrombosis. no pain, no madeleine swelling, no tenderness, negative Homans' sign noted on exam, no appreciated bluish discoloration, no erythema, no increased warmth. Vital Signs: 10:08 BP 87 / 60; Pulse 58; Resp 16; Pulse Ox 96% ; Weight 72.57 kg; Height 5 ft. 10 in. sv (177.80 cm); Pain 0/10; 10:10 Temp 97.5(TE); em1 11:00 BP 89 / 56; Pulse 56 MON; Resp 16; Pulse Ox 98% on R/A; sv 11:21 BP 90 / 62; Pulse 57; Resp 12; Pulse Ox 97% ; sv 12:08 BP 89 / 61; Pulse 53; Resp 12; Pulse Ox 95% ; sv 13:33 BP 114 / 71; Pulse 57; Resp 13; Pulse Ox 97% on R/A; em1 13:51 BP 113 / 68; Pulse 60; Resp 16 S; Temp 97.8(TE); Pulse Ox 99% on R/A; Pain 0/10; aa5 10:08 Body Mass Index 22.96 (72.57 kg, 177.80 cm) sv 11:00 Sinus bradycardia sv 11:21 Sinus bradycardia sv MDM: 10:12 Patient medically screened. [facility] 10:23 Data reviewed: vital signs, nurses notes, lab test result(s), EKG, radiologic studies, madeleine plain films. 02/24 10:01 Order name: Basic Metabolic Panel 02/24 10:01 Order name: CBC with Diff; Complete Time: 12:04 02/24 10:01 Order name: LFT's; Complete Time: 12:04 sv 02/24 10:01 Order name: Magnesium; Complete Time: 12:04 sv 02/24 10:01 Order name: NT PRO-BNP; Complete Time: 12:04 sv 02/24 10:01 Order name: PT-INR; Complete Time: 12:04 02/24 10:01 Order name: Troponin (emerg Dept Use Only); Complete Time: 12:04 sv 02/24 10:02 Order name: Basic Metabolic Panel; Complete Time: 12:04 EDMS 02/24 10:18 Order name: glucometer results - FOR PT WITH NO ID aa5 02/24 11:15 Order name: Manual Differential; Complete Time: 12:04 EDMS 02/24 12:46 Order name: Urine Dipstick--Ancillary (enter results) em1 02/24 12:55 Order name: TSH madeleine 02/24 13:33 Order name: Glucose, Ancillary Testing EDMS 02/24 13:33 Order name: Glucose, Ancillary Testing EDMS 02/24 10:01 Order name: XRAY Chest (1 view); Complete Time: 12:04 sv 02/24 10:01 Order name: EKG; Complete Time: 10:03 sv 02/24 10:01 Order name: Cardiac monitoring; Complete Time: 10:11 sv 02/24 10:01 Order name: EKG - Nurse/Tech; Complete Time: 10:11 sv 02/24 10:01 Order name: IV Saline Lock; Complete Time: 10:11 sv 02/24 10:01 Order name: Labs collected and sent; Complete Time: 10: sv 02/24 10:01 Order name: O2 Per Protocol; Complete Time: 10:02 sv 02/24 10:01 Order name: O2 Sat Monitoring; Complete Time: 10:02 sv 02/24 10:01 Order name: Diet Ada 2000 Brian; Complete Time: 10:03 sv 02/24 12:09 Order name: Diet Ada 2000 Brian; Complete Time: 12:10 sv 02/24 12:46 Order name: Orthostatics; Complete Time: 13:16 [facility] 02/24 12:47 Order name: Blood Glucose Level; Complete Time: 12:59 madeleine 02/24 13:33 Order name: Glucose, Ancillary Testing EDMS Administered Medications: 10:31 Drug: NS 0.9% 1000 ml Route: IV; Rate: 1 bolus; Site: right forearm; sv 12:10 Follow up: Response: No adverse reaction; IV Status: Completed infusion; IV Intake: sv 1000ml Point of Care Testing: Blood Glucose: 10:02 Blood Glucose: 78 mg/dL; sv 11:15 Blood Glucose: 138 mg/dL; sv 12:34 Blood Glucose: 84 mg/dL; sv 13:33 Blood Glucose: 114 mg/dL; em1 Ranges: Critical Glucose Levels:Adult <50 mg/dl or >400 mg/dl <40 mg/dl or >180 mg/dl Disposition: 02/24/19 13:32 Discharged to Home. Impression: Hypoglycemia, unspecified, Weakness, Hypotension, Anemia, unspecified. - Condition is Stable. - Discharge Instructions: Hypoglycemia, Hypotension, Weakness, Fatigue, Blood Glucose Monitoring, Adult, Hypotension, Gdzo-vx-[id number], Weakness, Blrb-bq-Ffvr, Hypoglycemia, Verx-tw-Thzz. - Medication Reconciliation Form, Thank You Letter, Antibiotic Education, Prescription Opioid Use form. - Follow up: Private Physician; When: 2 - 3 days; Reason: Recheck today's complaints, Continuance of care, Re-evaluation by your physician. - Problem is new. - Symptoms have improved. Signatures: Dispatcher [employer] Deborah Amaya RN RN sv Anderson, Corey, MD MD cha Corrections: (The following items were deleted from the chart) 14:02 13:32 02/24/2019 13:32 Discharged to Home. Impression: Hypoglycemia, unspecified; sv Weakness; Hypotension; Anemia, unspecified. Condition is Stable. Discharge Instructions: Hypoglycemia, Hypotension, Weakness, Fatigue, Blood Glucose Monitoring, Adult, Hypotension, Nezv-vg-Qgza, Weakness, Oabc-gt-Exoi, Hypoglycemia, Tedc-bu-Ddfi. Forms are Medication Reconciliation Form, Thank You Letter, Antibiotic Education, Prescription Opioid Use. Follow up: Private Physician; When: 2 - 3 days; Reason: Recheck today's complaints, Continuance of care, Re-evaluation by your physician. Problem is new. Symptoms have improved. madeleine
[2019-02-24 14:37] LABS: Urine Blood NEGATIVE (NEG); Urine Glucose NEGATIVE (NEG); Urine Protein NEGATIVE (NEG); Urine Specific Gravity <1.005 (1.005-1.030)
--- NOTE | 2019-02-24 18:25 | EKG ---
Test Date: 2019-02-24 Test Time: 10:06:03 Material Movers: ARTHUR MEASUREMENT RESULTS: Intervals: Rate: 56 CA: 144 QRSD: 98 QT: 452 QTc: 436 [place]: P: 26 CA: 144 QRS: 24 T: 29 INTERPRETIVE STATEMENTS: Sinus bradycardia Otherwise normal ECG Compared to ECG 12/12/2018 02:02:54 Sinus rhythm no longer present Electronically Signed On 02-24-19 18:23:32 CDT by Rubin Robledo
== END 2019-02-24 14:02 | disposition home or self-care (01) ==
LOC: ER 09:57
DX: E16.2 Hypoglycemia, unspecified (principal); I95.9 Hypotension, unspecified; D64.9 Anemia, unspecified; K91.1 Postgastric surgery syndromes; Z88.0 Allergy status to penicillin; Z88.5 Allergy status to narcotic agent; Z88.8 Allergy status to other drugs, medicaments and biological substances; Z85.72 Personal history of non-Hodgkin lymphomas
CPT/HCPCS: 96361; 93005; 85025; 80048; 36415; 83735; 85610; 82962 ×4; 80076; 84443; 81003; 84484; 83880; 71045; 96360; 99285; J7030

== ENCOUNTER 2019-02-26 12:18 | Emergency (ER) | payer OTHER ==
--- OUTSIDE RECORDS SUMMARY | 2019-02-26 12:21 | XMS REPORT ---
:1970 [facility] Address [address] [place] [address] Care Team Providers Name Role Phone UNKNOWN, [...] to the Main Lab for Analysis. Urinalysis [id number] 20:26:00 Test Item Value Reference Range Comments Color (test code=COLOR) Straw Yellow,Straw,Pl yellow Clarity (test code=CLAR) Clear Clear Specific [place] (test code=SPGR) 1.008 1.001-1.035 pH (test code=PH) [...] Bacteria (test code=BACT) None /HPF POC Glucose, [id number] 11:08:00 Test Item Value Reference Range Comments POC Glucose (test 86 mg/dL 70-115 If you consider your patient code=POCGLUC) critically ill, the Demetra Accu-Chek InformII metershould not be used for Glucose determinations.Draw a venous Glucose and send to the Main Lab for Analysis. Culture, [id number] 08:20:00Specimen: UrineCollected: 08/14/2017 21:15 Status: Final Last Updated: 08/17/2017 08:20 Culture Result (Final) (Final ) 08/16/17 No growth 24 hours 08/17/17 No growth 48 hoursPOC Glucose, [id number] 11:29:00 Test Item Value Reference Range Comments POC Glucose (test code=POCGLUC) 48 mg/dL 70-115 Notify RN or RPR, [id number] 13:54:00 Test Item Value Reference Range Comments RPR (test code=RPR) Non-Reactive Non-Reactive Thyroid Stimulating Hormone (TSH)2017-08-14 07:40:00 Test Item Value Reference Range Comments TSH (test code=TSH) 0.67 mIU/mL 0.270-4.200 Lipid [id number] 07:39:00 Test Item Value Reference Range Comments Cholesterol (test 153 mg/dL 0-200 code=CHOL) Triglycerides (test 110 mg/dL 9-200 code=TRIG) HDL (test code=HDL) 48 mg/dL 50-60 Chol/HDL (test 3.2 Ratio 0.0-4.4 code=CHOLPHDL) LDL, Calculated (test 83 0-130 (NOTE)RISK OF HEART code=LDLC) DISEASEPublished by [place] Heart AssociationAnalyte Optimal Boderline Increased RiskCHOL <200 200-239 >240TRIG <150 150-199 >200HDL Male: >60 <40HDL Female: >60 <50LDL <100 130-159 >160LDL NEAR OPTIMAL IS 100-129 VLDL (test code=VLDL) 22 mg/dL 5-40 LDL/HDL (test code=LDLPHDL) 2 BHCG, Serum, [id number] 07:24:00 Test Item Value Reference Range Comments Preg Qual [Se] (test code=BSHCG) Negative Negative CBC with [id number] 14:31:00 Test Item Value Reference Range Comments [...] Lymph Abs (test code=ALYMPH) 0.9 K/cumm 0.5-4.6 [place] Abs (test code=AMONO) 0.2 K/cumm 0.0-1.2 Eos Abs (test code=AEOS) 0.06 K/cumm 0.00-0.74 Baso Abs (test code=ABASO) 0.0 K/cumm 0.00-0.21 Anisocytosis (test code=ANISO) Slight Microcytosis (test code=MICRO) Slight Hypochromic (test code=HYPO) Slight Urinalysis [id number] 14:29:00 Test Item Value Reference Range Comments Color (test code=COLOR) Yellow Yellow,Straw,Pl yellow Clarity (test code=CLAR) Clear Clear Specific [place] (test code=SPGR) 1.017 1.001-1.035 pH (test code=PH) [...] Bacteria (test code=BACT) Few /HPF Comprehensive Metabolic [id number] 14:26:00 Test Item Value Reference Range Comments [...] race is not provided, and the patient isAfrican-Bermudian, multiply by 1.212. If sex is not provided, and thepatient is female, multiply by 0.742. Results for patients <18 years ofage have not been validated by the MDRD study and should be interpretedwith caution.eGFR Result Interpretation:eGFR > or=60 is in the Normal RangeeGFR < 60 may mean kidney diseaseeGFR < 15 may mean kidney failureRanges recommended by the National Kidney Foundation,http://nkdep.nih .gov [id number] 14:22:00 Test Item Value Reference Range Comments [...]
[2019-02-26 13:09] LABS: Absolute Lymphocytes (CBC) 0.9 K/uL (0.7-4.9); Absolute Monocytes 0.5 K/uL (0.1-1.3); Absolute Neutrophil 2.3 K/uL (1.8-8.0); Basophils % 0.5 % (0-1.3); Eosinophils % 2.5 % (0-4.4); Hematocrit 26.1 % (36.0-45.0); Lymphocytes % 22.7 % (15.3-44.8); MPV 8.1 fL (7.6-11.3); Monocytes % 12.2 % (3.3-12.3); RBC Red Blood Cell Count 3.57 M/uL (3.86-4.86)
[2019-02-26 13:16] LABS: ALT/SGPT 25 U/L (12-78); AST/SGOT 28 U/L (15-37); Albumin 3.2 g/dL (3.4-5.0); Alkaline Phosphatase 105 U/L (45-117); BUN Blood Urea Nitrogen 11 mg/dL (7-18); Bicarbonate 29 mmol/L (21-32); Bilirubin Total 0.1 mg/dL (0.2-1.0); Glucose Level 69 mg/dL (74-106); Potassium 3.9 mmol/L (3.5-5.1); Protein, Total 6.6 g/dL (6.4-8.2); Sodium Level 143 mmol/L (136-145)
[2019-02-26 13:38] LABS: Anisocytosis 1+; Blood Morphology Comment NOTED (NOT SEEN); Hypochromasia 1+; Platelet Estimate ADEQ; Platelets, Giant FEW
[2019-02-26 14:55] LABS: Urine Blood NEGATIVE (NEG); Urine Glucose NEGATIVE (NEG); Urine Protein NEGATIVE (NEG); Urine pH 6.5 (5.0-7.0)
[2019-02-26] MEDS ORDERED: NA CHLORIDE 0.9% 1,000 ML ONE (15:23)
--- NOTE | 2019-02-26 17:01 | EDPHYS ---
Physician Documentation [facility] Name: Edouard Nix Age: 48 yrs Sex: Female : 1970 Arrival Date: 02/26/2019 Time: 12:15 Bed 20 Private MD: ED Physician Benoit Barroso HPI: 02/26 14:05 This 48 yrs old Female presents to ER via EMS with complaints of Low Blood pm1 Sugar. 14:05 The patient or guardian reports hypoglycemia, that was potentially precipitated by Not pm1 eating enough. Patient typically eats throughout the day at home but she is currently in drug/addiction rehab. Onset: The symptoms/episode began/occurred today. Associated signs and symptoms: Pertinent negatives: None. Current symptoms: In the emergency department the patient's symptoms have improved. The patient has experienced similar episodes in the past, multiple times. The patient has been recently seen at the [facility] Emergency Department, this week, for similar complaints labs were performed, X-rays were performed. Patient without stomach and duodenum due o cancer. therefore patient with history of hypoglycemia that is avoided by patient eating/snacking throughout the day. Patient is currently in addiction/drug rehabilitation therefore she is unable to eat throughout the day easily. Historical: - Allergies: 12:18 ambien; sv 12:18 Codeine; sv 12:18 Cymbalta; sv 12:18 Morphine; sv 12:18 PENICILLINS; sv 12:18 Ibuprofen; sv - PMHx: 12:18 dumping syndrome; Non-Hodgkins Lymphoma; Osteoporosis; sv - PSHx: 12:18 stomach removed; sv - Immunization history:: Adult Immunizations up to date. - Social history:: Smoking status: Patient/guardian denies using tobacco. - Ebola Screening: : No symptoms or risks identified at this time. ROS: 14:05 Constitutional: Negative for fever, chills, and weight loss, Eyes: Negative for injury, pm1 pain, redness, and discharge, ENT: Negative for injury, pain, and discharge, Neck: Negative for injury, pain, and swelling, Cardiovascular: Negative for chest pain, palpitations, and edema, Respiratory: Negative for shortness of breath, cough, wheezing, and pleuritic chest pain, Abdomen/GI: Negative for abdominal pain, nausea, vomiting, diarrhea, and constipation, Back: Negative for injury and pain, : Negative for injury, bleeding, discharge, and swelling, MS/Extremity: Negative for injury and deformity, Skin: Negative for injury, rash, and discoloration, Neuro: Negative for headache, weakness, numbness, tingling, and seizure. Exam: 14:05 Constitutional: This is a well developed, well nourished patient who is awake, alert, pm1 and in no acute distress. Head/Face: Normocephalic, atraumatic. Eyes: Pupils equal round and reactive to light, extra-ocular motions intact. Lids and lashes normal. Conjunctiva and sclera are non-icteric and not injected. Cornea within normal limits. Periorbital areas with no swelling, redness, or edema. ENT: Nares patent. No nasal discharge, no septal abnormalities noted. Tympanic membranes are normal and external auditory canals are clear. Oropharynx with no redness, swelling, or masses, exudates, or evidence of obstruction, uvula midline. Mucous membranes moist. Neck: Trachea midline, no thyromegaly or masses palpated, and no cervical lymphadenopathy. Supple, full range of motion without nuchal rigidity, or vertebral point tenderness. No Meningismus. Chest/axilla: Normal chest wall appearance and motion. Nontender with no deformity. No lesions are appreciated. Cardiovascular: Regular rate and rhythm with a normal S1 and S2. No gallops, murmurs, or rubs. Normal PMI, no JVD. No pulse deficits. Respiratory: Lungs have equal breath sounds bilaterally, clear to auscultation and percussion. No rales, rhonchi or wheezes noted. No increased work of breathing, no retractions or nasal flaring. Abdomen/GI: Soft, non-tender, with normal bowel sounds. No distension or tympany. No guarding or rebound. No evidence of tenderness throughout. Back: No spinal tenderness. No costovertebral tenderness. Full range of motion. Skin: Warm, dry with normal turgor. Normal color with no rashes, no lesions, and no evidence of cellulitis. MS/ Extremity: Pulses equal, no cyanosis. Neurovascular intact. Full, normal range of motion. 14:05 Neuro: Orientation: is normal, Motor: moves all fours. 16:31 Abdomen/GI: Rectal exam: rectal tone normal, Stool: brown, guaiac negative, mass, is pm1 not appreciated, tenderness, is not appreciated, Nasrin interventional tech. Vital Signs: 12:38 BP 92 / 47; Pulse 55; Resp 18; Temp 98.3; Pulse Ox 99% ; Weight 72 kg; Height 5 ft. 10 sv in. (177.80 cm); Pain 0/10; 13:53 BP 86 / 51; Pulse 54; Resp 16; Pulse Ox 98% ; sv 14:05 BP 96 / 54; Pulse 59; Resp 16; Temp 98; Pulse Ox 97% ; sv 15:01 BP 90 / 44; Pulse 64 MON; Resp 18; Pulse Ox 96% ; sv 15:59 BP 106 / 55; Pulse 71; Resp 16; Pulse Ox 99% ; sv 16:56 BP 113 / 68; Pulse 61; Resp 18; Temp 98; Pulse Ox 97% ; sv 17:12 BP 124 / 69; Pulse 57; Resp 16; Pulse Ox 99% on R/A; sv 12:38 Body Mass Index 22.78 (72.00 kg, 177.80 cm) sv 15:01 Sinus Rhythm sv MDM: 12:22 Patient medically screened. pm1 16:59 Data reviewed: vital signs. Data interpreted: Pulse oximetry: on room air is 97 %. pm1 Interpretation: normal. Counseling: I had a detailed discussion with the patient and/or guardian regarding: the historical points, exam findings, and any diagnostic results supporting the discharge/admit diagnosis, lab results, the need for outpatient follow up, to return to the emergency department if symptoms worsen or persist or if there are any questions or concerns that arise at home. 17:12 ED course: Patient's blood sugar stable and WNL after eating food in the ER. Negative pm1 stool guaiac. No bleeding sources. Hgb today is 7.9. Patient does not meet requirements for blood transfusion because anemia is chronic and her Hgb in November 2018 was 8.3. Patient had surgical removal of stomach and duodenum due to cancer. Patient's microcytic anemia is likely related to dietary consumption of iron. Patient has taken iron and B12 supplementation in the past. Patient has not taken previously prescribed vitamin and mineral supplementation due to side effect of constipation. I will discharge the patient home with liquid iron supplementation and follow up with PCP. 02/26 12:30 Order name: Glucose, Ancillary Testing; Complete Time: 12:31 EDMS 02/26 12:34 Order name: CBC with Diff; Complete Time: 13:42 pm1 02/26 12:34 Order name: CMP; Complete Time: 13:19 pm1 02/26 12:37 Order name: Type And Screen; Complete Time: 14:23 pm1 02/26 13:39 Order name: Manual Differential; Complete Time: 13:42 EDMS 02/26 13:55 Order name: Glucose, Ancillary Testing; Complete Time: 14:23 EDMS 02/26 12:34 Order name: IV Saline Lock; Complete Time: 12:39 pm1 02/26 12:34 Order name: Urine Dipstick-Ancillary (obtain specimen); Complete Time: 15:22 pm1 02/26 12:34 Order name: Urine Test (obtain specimen); Complete Time: 15:22 pm1 02/26 14:31 Order name: Urine Dipstick--Ancillary (enter results); Complete Time: 14:57 eb 02/26 14:31 Order name: Urine --Ancillary (enter results); Complete Time: 14:57 eb 02/26 14:37 Order name: ABO/RH no charge; Complete Time: 14:57 EDMS 02/26 16:57 Order name: Diet Regular; Complete Time: 16:58 sv 02/26 15:52 Order name: Finger Stick; Complete Time: 16:00 pm1 Administered Medications: 15:16 Drug: NS 0.9% 1000 ml Route: IV; Rate: 1000 ml; Site: right forearm; sv 16:00 Follow up: Response: No adverse reaction; IV Status: Completed infusion; IV Intake: sv 1000ml Point of Care Testing: Blood Glucose: 12:29 Blood Glucose: 109 mg/dL; sv 13:53 Blood Glucose: 114 mg/dL; sv Ranges: Critical Glucose Levels:Adult <50 mg/dl or >400 mg/dl <40 mg/dl or >180 mg/dl Disposition: 02/27 06:58 Co-signature as Attending Physician, Benoit Barroso MD I agree with the assessment and kdr plan of care. Disposition: 02/26/19 17:00 Discharged to Home. Impression: Hypoglycemia, unspecified, Anemia, unspecified. - Condition is Stable. - Discharge Instructions: Iron Deficiency Anemia, Adult, Anemia, Nonspecific, Iron-Rich Diet, Hypoglycemia, Blood Glucose Monitoring, Adult. - Prescriptions for ferrous sulfate 300 mg (60 mg iron)/5 mL Oral liquid - take 5 milliliter by ORAL route 3 times per day; 450 milliliter. - Medication Reconciliation Form, Thank You Letter, Antibiotic Education, Prescription Opioid Use form. - Follow up: Emergency Department; When: As needed; Reason: Worsening of condition. Follow up: Private Physician; When: 2 - 3 days; Reason: Recheck today's complaints, Continuance of care, Re-evaluation by your physician. - Problem is new. - Symptoms have improved. Signatures: Dispatcher [employer] EDMS Deborah Cullen RN RN sv Benoit Barroso MD MD kdr Marinas, Patrick, NP SUPERVISOR LIQUID YEAST pm1 Corrections: (The following items were deleted from the chart) 02/26 17:02 17:00 02/26/2019 17:00 Discharged to Home. Impression: Hypoglycemia, unspecified. pm1 Condition is Stable. Forms are Medication Reconciliation Form, Thank You Letter, Antibiotic Education, Prescription Opioid Use. Follow up: Emergency Department; When: As needed; Reason: Worsening of condition. Follow up: Private Physician; When: 2 - 3 days; Reason: Recheck today's complaints, Continuance of care, Re-evaluation by your physician. Problem is new. Symptoms have improved. pm1 17:43 17:02 02/26/2019 17:00 Discharged to Home. Impression: Hypoglycemia, unspecified; sv Anemia, unspecified. Condition is Stable. Discharge Instructions: Iron Deficiency Anemia, Adult, Anemia, Nonspecific, Iron-Rich Diet, Hypoglycemia, Blood Glucose Monitoring, Adult. Prescriptions for ferrous sulfate 300 mg (60 mg iron)/5 mL Oral liquid - take 5 milliliter by ORAL route 3 times per day; 450 milliliter. and Forms are Medication Reconciliation Form, Thank You Letter, Antibiotic Education, Prescription Opioid Use. Follow up: Emergency Department; When: As needed; Reason: Worsening of condition. Follow up: Private Physician; When: 2 - 3 days; Reason: Recheck today's complaints, Continuance of care, Re-evaluation by your physician. Problem is new. Symptoms have improved. pm1
--- NOTE | 2019-02-26 17:01 | ER ---
Nurse's Notes [facility] Name: Edouard Nix Age: 48 yrs Sex: Female : 1970 Arrival Date: 02/26/2019 Time: 12:15 Bed 20 Private MD: Diagnosis: Hypoglycemia, unspecified;Anemia, unspecified Presentation: 02/26 12:13 Presenting complaint: EMS states: called out from [facility] for hypoglycemia, pt was sv seen here in the ER for the same thing and was discharged. Hx dumping syndrome. Transition of care: patient was not received from another setting of care. Onset of symptoms was February 26, 2019. Risk Assessment: Do you want to hurt yourself or someone else? Patient reports no desire to harm self or others. Care prior to arrival: None. 12:13 Method Of Arrival: EMS: [facility] sv 12:13 Acuity: RIANNA 2 sv 12:38 Initial Sepsis Screen: Does the patient meet any 2 criteria? No. Patient's initial sv sepsis screen is negative. Does the patient have a suspected source of infection? No. Patient's initial sepsis screen is negative. Triage Assessment: 12:13 General: Appears in no apparent distress. comfortable, well groomed, well developed, sv Behavior is calm, cooperative, appropriate for age. Pain: Denies pain. Neuro: Level of Consciousness is awake, alert, obeys commands, Oriented to person, place, time, situation, Moves all extremities. Full function Gait is steady, Speech is normal. Respiratory: Airway is patent Respiratory effort is even, unlabored, Respiratory pattern is regular, symmetrical. Derm: Skin is pink, warm \T\ dry. Musculoskeletal: Range of motion: intact in all extremities. Historical: - Allergies: 12:18 ambien; sv 12:18 Codeine; sv 12:18 Cymbalta; sv 12:18 Morphine; sv 12:18 PENICILLINS; sv 12:18 Ibuprofen; sv - PMHx: 12:18 dumping syndrome; Non-Hodgkins Lymphoma; Osteoporosis; sv - PSHx: 12:18 stomach removed; sv - Immunization history:: Adult Immunizations up to date. - Social history:: Smoking status: Patient/guardian denies using tobacco. - Ebola Screening: : No symptoms or risks identified at this time. Screenin:57 Abuse screen: Denies threats or abuse. Denies injuries from another. Abuse screen: sv Denies threats or abuse. Nutritional screening: No deficits noted. Tuberculosis screening: No symptoms or risk factors identified. Fall Risk None identified. Assessment: 12:58 Reassessment: Patient appears in no apparent distress at this time. No changes from sv previously documented assessment. Patient and/or family updated on plan of care and expected duration. Pain level reassessed. Patient is alert, oriented x 3, equal unlabored respirations, skin warm/dry/pink. Pt given a lunch tray. 14:05 Reassessment: Patient appears in no apparent distress at this time. No changes from sv previously documented assessment. Patient and/or family updated on plan of care and expected duration. Pain level reassessed. Patient is alert, oriented x 3, equal unlabored respirations, skin warm/dry/pink. 15:10 Reassessment: Patient appears in no apparent distress at this time. Patient and/or sv family updated on plan of care and expected duration. Pain level reassessed. Patient is alert, oriented x 3, equal unlabored respirations, skin warm/dry/pink. 16:56 Reassessment: Patient appears in no apparent distress at this time. No changes from sv previously documented assessment. Patient and/or family updated on plan of care and expected duration. Pain level reassessed. Patient is alert, oriented x 3, equal unlabored respirations, skin warm/dry/pink. 17:30 Reassessment: Patient appears in no apparent distress at this time. Patient and/or sv family updated on plan of care and expected duration. Pain level reassessed. Patient is alert, oriented x 3, equal unlabored respirations, skin warm/dry/pink. Pt given dinner tray. 17:37 Reassessment: [facility] called and informed pt is ready to go back. Tooling Mechanic sv stated that the pt only has to request for extra snacks and they will give them to her and they eat 6 meals a day. Vital Signs: 12:38 BP 92 / 47; Pulse 55; Resp 18; Temp 98.3; Pulse Ox 99% ; Weight 72 kg; Height 5 ft. 10 sv in. (177.80 cm); Pain 0/10; 13:53 BP 86 / 51; Pulse 54; Resp 16; Pulse Ox 98% ; sv 14:05 BP 96 / 54; Pulse 59; Resp 16; Temp 98; Pulse Ox 97% ; sv 15:01 BP 90 / 44; Pulse 64 MON; Resp 18; Pulse Ox 96% ; sv 15:59 BP 106 / 55; Pulse 71; Resp 16; Pulse Ox 99% ; sv 16:56 BP 113 / 68; Pulse 61; Resp 18; Temp 98; Pulse Ox 97% ; sv 17:12 BP 124 / 69; Pulse 57; Resp 16; Pulse Ox 99% on R/A; sv 12:38 Body Mass Index 22.78 (72.00 kg, 177.80 cm) sv 15:01 Sinus Rhythm sv ED Course: 12:15 Patient arrived in ED. sv 12:15 Deborah Cullen, RN is Primary Nurse. sv 12:17 Triage completed. sv 12:20 Patient has correct armband on for positive identification. Placed in gown. Bed in low sv position. Call light in reach. Side rails up X2. court recording monitor on. Pulse ox on. NIBP on. Door closed. Warm blanket given. Head of bed elevated. 12:21 Richard Terry NP is PHCP. pm1 12:21 Benoit Barroso MD is Attending Physician. pm1 12:35 Initial lab(s) drawn, by wi, sent to lab. T\T\S collected, blood band applied to patient. sv Inserted saline lock: 20 gauge in right forearm, using aseptic technique. Blood collected. Flushed right forearm with 5 ml normal saline. 12:39 Arm band placed on. sv 15:43 BLOOD SUGAR 135 \T\1543. kj1 17:37 No provider procedures requiring assistance completed. IV discontinued, intact, sv bleeding controlled, No redness/swelling at site. Pressure dressing applied. Administered Medications: 15:16 Drug: NS 0.9% 1000 ml Route: IV; Rate: 1000 ml; Site: right forearm; sv 16:00 Follow up: Response: No adverse reaction; IV Status: Completed infusion; IV Intake: sv 1000ml Point of Care Testing: Blood Glucose: 12:29 Blood Glucose: 109 mg/dL; sv 13:53 Blood Glucose: 114 mg/dL; sv Ranges: Intake: 16:00 IV: 1000ml; Total: 1000ml. sv Outcome: 17:00 Discharge ordered by . pm1 17:38 Discharged to [facility] sv 17:38 Condition: stable 17:38 Discharge instructions given to patient. 17:38 Discharge instructions given to patient, Instructed on discharge instructions, follow up and referral plans. medication usage, Demonstrated understanding of instructions, follow-up care, medications, Prescriptions given X 1. 17:43 Patient left the ED. sv Signatures: Deborah Cullen RN RN Richard Terry NP TITLE DEPARTMENT MANAGER pm1 Dimple Patricia kj1 Corrections: (The following items were deleted from the chart) 16:56 14:05 BP 96 / 54; Pulse 59bpm; Resp 16bpm; Pulse Ox 97%; sv sv 16:57 12:38 BP 92 / 47; Pulse 55bpm; Resp 18bpm; Pulse Ox 99%; Temp 98.3F; Pain 0/10; sv sv
== END 2019-02-26 17:43 | disposition home or self-care (01) ==
LOC: ER 12:18
DX: E16.2 Hypoglycemia, unspecified (principal); D64.9 Anemia, unspecified; C85.90 Non-Hodgkin lymphoma, unspecified, unspecified site; M81.0 Age-related osteoporosis without current pathological fracture; Z90.3 Acquired absence of stomach [part of]; Z88.6 Allergy status to analgesic agent; Z88.5 Allergy status to narcotic agent; Z88.0 Allergy status to penicillin; Z88.8 Allergy status to other drugs, medicaments and biological substances
CPT/HCPCS: 85025; 36415; 86900; 86850; 81025; 86901; 82962 ×2; 81003; 80053; 96360; 99285; J7030

== ENCOUNTER 2019-03-07 20:59 | Emergency (ER) | payer OTHER ==
--- OUTSIDE RECORDS SUMMARY | 2019-03-07 21:02 | XMS REPORT ---
:1970 [facility] Address [address] [place] [address] Care Team Providers Name Role Phone UNKNOWN, [...] to the Main Lab for Analysis. Urinalysis [id number] 20:26:00 Test Item Value Reference Range Comments Color (test code=COLOR) Straw Yellow,Straw,Pl yellow Clarity (test code=CLAR) Clear Clear Specific [place] (test code=SPGR) 1.008 1.001-1.035 pH (test code=PH) [...] Bacteria (test code=BACT) None /HPF POC Glucose, [id number] 11:08:00 Test Item Value Reference Range Comments POC Glucose (test 86 mg/dL 70-115 If you consider your patient code=POCGLUC) critically ill, the Dmeetra Accu-Chek InformII metershould not be used for Glucose determinations.Draw a venous Glucose and send to the Main Lab for Analysis. Culture, [id number] 08:20:00Specimen: UrineCollected: 08/14/2017 21:15 Status: Final Last Updated: 08/17/2017 08:20 Culture Result (Final) (Final ) 08/16/17 No growth 24 hours 08/17/17 No growth 48 hoursPOC Glucose, [id number] 11:29:00 Test Item Value Reference Range Comments POC Glucose (test code=POCGLUC) 48 mg/dL 70-115 Notify RN or RPR, [id number] 13:54:00 Test Item Value Reference Range Comments RPR (test code=RPR) Non-Reactive Non-Reactive Thyroid Stimulating Hormone (TSH)2017-08-14 07:40:00 Test Item Value Reference Range Comments TSH (test code=TSH) 0.67 mIU/mL 0.270-4.200 Lipid [id number] 07:39:00 Test Item Value Reference Range Comments Cholesterol (test 153 mg/dL 0-200 code=CHOL) Triglycerides (test 110 mg/dL 9-200 code=TRIG) HDL (test code=HDL) 48 mg/dL 50-60 Chol/HDL (test 3.2 Ratio 0.0-4.4 code=CHOLPHDL) LDL, Calculated (test 83 0-130 (NOTE)RISK OF HEART code=LDLC) DISEASEPublished by Turkmen Heart AssociationAnalyte Optimal Boderline Increased RiskCHOL <200 200-239 >240TRIG <150 150-199 >200HDL Male: >60 <40HDL Female: >60 <50LDL <100 130-159 >160LDL NEAR OPTIMAL IS 100-129 VLDL (test code=VLDL) 22 mg/dL 5-40 LDL/HDL (test code=LDLPHDL) 2 BHCG, Serum, [id number] 07:24:00 Test Item Value Reference Range Comments Preg Qual [Se] (test code=BSHCG) Negative Negative CBC with [id number] 14:31:00 Test Item Value Reference Range Comments [...] Lymph Abs (test code=ALYMPH) 0.9 K/cumm 0.5-4.6 [place] Abs (test code=AMONO) 0.2 K/cumm 0.0-1.2 Eos Abs (test code=AEOS) 0.06 K/cumm 0.00-0.74 Baso Abs (test code=ABASO) 0.0 K/cumm 0.00-0.21 Anisocytosis (test code=ANISO) Slight Microcytosis (test code=MICRO) Slight Hypochromic (test code=HYPO) Slight Urinalysis [id number] 14:29:00 Test Item Value Reference Range Comments Color (test code=COLOR) Yellow Yellow,Straw,Pl yellow Clarity (test code=CLAR) Clear Clear Specific [place] (test code=SPGR) 1.017 1.001-1.035 pH (test code=PH) [...] Bacteria (test code=BACT) Few /HPF Comprehensive Metabolic [id number] 14:26:00 Test Item Value Reference Range Comments [...] race is not provided, and the patient isAfrican-Turkmen, multiply by 1.212. If sex is not provided, and thepatient is female, multiply by 0.742. Results for patients <18 years ofage have not been validated by the MDRD study and should be interpretedwith caution.eGFR Result Interpretation:eGFR > or=60 is in the Normal RangeeGFR < 60 may mean kidney diseaseeGFR < 15 may mean kidney failureRanges recommended by the National Kidney Foundation,http://nkdep.nih .gov [id number] 14:22:00 Test Item Value Reference Range Comments [...]
[2019-03-07 21:29] LABS: Absolute Lymphocytes (CBC) 1.1 K/uL (0.7-4.9); Absolute Monocytes 0.6 K/uL (0.1-1.3); Absolute Neutrophil 2.7 K/uL (1.8-8.0); Basophils % 0.8 % (0-1.3); Eosinophils % 4.3 % (0-4.4); Hematocrit 26.7 % (36.0-45.0); Lymphocytes % 23.9 % (15.3-44.8); MPV 7.7 fL (7.6-11.3); RBC Red Blood Cell Count 3.63 M/uL (3.86-4.86)
[2019-03-07] MEDS ORDERED: ONDANSETRON 4 MG/2 ML VIAL ONE ×2 (21:40→23:03)
[2019-03-07] MEDS ORDERED: NA CHLORIDE 0.9% 1,000 ML ONE (21:40)
[2019-03-07 21:42] LABS: ALT/SGPT 22 U/L (12-78); AST/SGOT 21 U/L (15-37); Albumin 3.6 g/dL (3.4-5.0); Alkaline Phosphatase 113 U/L (45-117); BUN Blood Urea Nitrogen 8 mg/dL (7-18); Bicarbonate 28 mmol/L (21-32); Bilirubin Direct < 0.1 mg/dL (0-0.2); Bilirubin Total 0.2 mg/dL (0.2-1.0); Glucose Level 67 mg/dL (74-106); Lipase 109 U/L (73-393); Potassium 4.1 mmol/L (3.5-5.1); Protein, Total 7.5 g/dL (6.4-8.2); Sodium Level 145 mmol/L (136-145)
[2019-03-07 22:35] LABS: Anisocytosis 1+; Blood Morphology Comment NOTED (NOT SEEN); Platelet Estimate ADEQ; Urine White Blood Cell Casts OK
[2019-03-07] MEDS ORDERED: D50W 25 GM/50 ML SYRINGE IV ONE (23:02)
[2019-03-07] MEDS ORDERED: PROMETHAZINE 25 MG/ML VIAL ONE (23:05)
--- NOTE | 2019-03-07 23:31 | ER ---
Nurse's Notes [facility] Name: Edouard Nix Age: 48 yrs Sex: Female : 1970 Arrival Date: 03/07/2019 Time: 21:02 Bed 20 Private MD: Diagnosis: Vomiting, unspecified;Abdominal tenderness Presentation: 03/07 20:56 Presenting complaint: EMS states: She was at the [facility] when friends of hers jb4 reported she was acting abnormally after dinner. She appears to be lethargic but is oriented x 4, and is complaining of right sided pain. 20:56 Transition of care: patient was not received from another setting of care. Onset of jb4 symptoms was March 07, 2019. Risk Assessment: Do you want to hurt yourself or someone else? Patient reports no desire to harm self or others. Initial Sepsis Screen: Does the patient meet any 2 criteria? No. Patient's initial sepsis screen is negative. Does the patient have a suspected source of infection? No. Patient's initial sepsis screen is negative. Care prior to arrival: Medication(s) given: zofran 4 mg, Toradol 30 mg IV initiated. 20 GA, in the left antecubital area, Glucose check: 83. 20:56 Method Of Arrival: EMS: [facility] jb4 20:56 Acuity: RIANNA 3 jb4 Triage Assessment: 20:56 General: Appears in no apparent distress. uncomfortable, Behavior is calm, cooperative, jb4 appropriate for age. Pain: Complains of pain in anterior aspect of right lateral abdomen Pain does not radiate. Pain currently is 7 out of 10 on a pain scale. Quality of pain is described as stabbing, Pain began 30 min ago. EENT: No signs and/or symptoms were reported regarding the EENT system. Neuro: Level of Consciousness is awake, alert, obeys commands, Oriented to person, place, time, situation. Cardiovascular: Patient's skin is warm and dry. Respiratory: Airway is patent Respiratory effort is even, unlabored, Respiratory pattern is regular, symmetrical. GI: No signs and/or symptoms were reported involving the gastrointestinal system. : No signs and/or symptoms were reported regarding the genitourinary system. Derm: Skin is intact, Skin is pink, warm \T\ dry. Musculoskeletal: Circulation, motion, and sensation intact. 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 jb4 Historical: - Allergies: 20:56 ambien; jb4 20:56 Codeine; jb4 20:56 Cymbalta; jb4 20:56 Ibuprofen; jb4 20:56 Morphine; jb4 20:56 PENICILLINS; jb4 20:56 Dilaudid; jb4 20:56 all opiod pain medications; jb4 - Home Meds: 20:56 hydroxyzine HCl 50 mg Oral tab q6h prn [Active]; gabapentin 600 mg Oral tab 3 times per jb4 day [Active]; trazodone 100 mg Oral tab qhs prn [Active]; Seroquel 300 mg Oral tab nightly [Active]; Celexa 40 mg Oral tab once daily [Active]; - PMHx: 20:56 dumping syndrome; Non-Hodgkins Lymphoma; Osteoporosis; Kidney stones; hepatomegaly; jb4 Depression; PTSD; Anxiety; Diabetes - NIDDM; Seizures; Anemia; - PSHx: 20:56 Hysterectomy; Cholecystectomy; cancer removal; jb4 - Immunization history:: Adult Immunizations up to date. - Social history:: Smoking status: Patient uses tobacco products, Patient/guardian denies using alcohol. - Ebola Screening: : No symptoms or risks identified at this time. Screenin:56 Abuse screen: Denies threats or abuse. Nutritional screening: No deficits noted. jb4 Tuberculosis screening: No symptoms or risk factors identified. Fall Risk IV access (20 points). Mental Status- Overestimates/Forgets Limitations (15 pts.). Total [place] Fall Scale indicates Low Risk Score (25-44 pts). Fall prevention measures have been instituted. Side Rails Up X 2 Placed close to Nursing Station Frequent Obs/Assesments occuring As available Patient and Family Educated on Fall Prevention Program and strategies. Assessment: 20:56 General: See triage assessment.. jb4 22:00 Reassessment: Patient appears in no apparent distress at this time. Patient and/or jb4 family updated on plan of care and expected duration. Pain level reassessed. Patient is alert, oriented x 3, equal unlabored respirations, skin warm/dry/pink. 23:15 Reassessment: Patient appears in no apparent distress at this time. Patient and/or jb4 family updated on plan of care and expected duration. Pain level reassessed. Patient is alert, oriented x 3, equal unlabored respirations, skin warm/dry/pink. Pt has a guest at the bedside. 23:55 Reassessment: Patient appears in no apparent distress at this time. Patient and/or jb4 family updated on plan of care and expected duration. Pain level reassessed. Patient is alert, oriented x 3, equal unlabored respirations, skin warm/dry/pink. Pt ambulated to [facility] with steady gate accompanied by rehab staff that she is staying with. Vital Signs: 20:56 BP 134 / 81; Pulse 64; Resp 18; Temp 98.7(O); Pulse Ox 100% on R/A; Weight 77.11 kg jb4 (R); Height 5 ft. 9 in. (175.26 cm) (R); Pain 7/10; 22:15 BP 143 / 79; Pulse 62; Resp 18; Pulse Ox 96% on R/A; jb4 23:15 BP 128 / 71; Pulse 61; Resp 16; Pulse Ox 100% on R/A; jb4 20:56 Body Mass Index 25.10 (77.11 kg, 175.26 cm) jb4 ED Course: 20:56 Arm band placed on right wrist. jb4 20:56 Patient has correct armband on for positive identification. Placed in gown. Bed in low jb4 position. Call light in reach. Side rails up X 1. Pulse ox on. NIBP on. 21:02 Patient arrived in ED. bb 21:06 Quan Villagomez, JOCELIN is Primary Nurse. jb4 21:08 Jonnathan Larson MD is Attending Physician. tw4 21:09 Triage completed. jb4 21:23 Basic Metabolic Panel Sent. jb4 21:23 CBC with Diff Sent. jb4 21:23 Creatinine for Radiology Sent. jb4 21:23 Hepatic Function Sent. jb4 21:23 Lipase Sent. jb4 21:23 Basic Metabolic Panel Sent. jb4 21:23 CBC with Automated Diff Sent. jb4 21:55 CT Abd/Pelvis - Without Cont In Process Unspecified. EDMS 23:55 No provider procedures requiring assistance completed. IV discontinued, intact, jb4 bleeding controlled. Administered Medications: 21:32 Drug: Zofran 4 mg Route: IVP; Site: left antecubital; jb4 22:00 Follow up: Response: No adverse reaction; Nausea is decreased jb4 21:47 Drug: NS 0.9% 1000 ml Route: IV; Rate: 1 bolus; Site: left antecubital; jb4 23:00 Follow up: Response: No adverse reaction; IV Status: Completed infusion; IV Intake: jb4 1000ml 22:53 Drug: D50W 25 ml Route: IVP; Site: left antecubital; jb4 23:54 Follow up: Response: No adverse reaction; Marked relief of symptoms jb4 22:57 Drug: Phenergan 12.5 mg Route: IVP; Site: left antecubital; jb4 23:20 Follow up: Response: No adverse reaction; Nausea is decreased jb4 Point of Care Testing: Blood Glucose: 20:56 Blood Glucose: 73 mg/dL; jb4 23:24 Blood Glucose: 136 mg/dL; jb4 Ranges: Intake: 23:00 IV: 1000ml; Total: 1000ml. jb4 Outcome: 23:30 Discharge ordered by . 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 medication usage, Demonstrated understanding of instructions, follow-up care, medications, Prescriptions given X 2. 23:57 Patient left the ED. jb4 Signatures: Dispatcher [employer] EDStephanie Tejada, RN Quan Daly RN RN jb4 Wadley, Terrence, MD MD tw4 Corrections: (The following items were deleted from the chart) 21:21 20:56 Care prior to arrival: None. jb4 jb4
--- NOTE | 2019-03-07 23:31 | EDPHYS ---
Physician Documentation [facility] Name: Edouard Nix Age: 48 yrs Sex: Female : 1970 Arrival Date: 03/07/2019 Time: 21:02 Bed 20 Private MD: ED Physician Jonnathan Larson HPI: 03/08 22:54 This 48 yrs old Female presents to ER via EMS with complaints of abdominal tw4 pain. 22:54 The patient presents with abdominal pain. tw4 22:54 Onset: The symptoms/episode began/occurred today. The symptoms. Associated signs and tw4 symptoms: Pertinent positives: nausea and vomiting. The symptoms are described as dull. Modifying factors: The symptoms are alleviated by nothing, the symptoms are aggravated by nothing. Severity of pain: At its worst the pain was moderate in the emergency department the pain is unchanged. The patient has not experienced similar symptoms in the past. 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 N/A - Hysterectomy jb4 Historical: - Allergies: 20:56 ambien; jb4 20:56 Codeine; jb4 20:56 Cymbalta; jb4 20:56 Ibuprofen; jb4 20:56 Morphine; jb4 20:56 PENICILLINS; jb4 20:56 Dilaudid; jb4 20:56 all opiod pain medications; jb4 - Home Meds: 20:56 hydroxyzine HCl 50 mg Oral tab q6h prn [Active]; gabapentin 600 mg Oral tab 3 times per jb4 day [Active]; trazodone 100 mg Oral tab qhs prn [Active]; Seroquel 300 mg Oral tab nightly [Active]; Celexa 40 mg Oral tab once daily [Active]; - PMHx: 20:56 dumping syndrome; Non-Hodgkins Lymphoma; Osteoporosis; Kidney stones; hepatomegaly; jb4 Depression; PTSD; Anxiety; Diabetes - NIDDM; Seizures; Anemia; - PSHx: 20:56 Hysterectomy; Cholecystectomy; cancer removal; jb4 - Immunization history:: Adult Immunizations up to date. - Social history:: Smoking status: Patient uses tobacco products, Patient/guardian denies using alcohol. - Ebola Screening: : No symptoms or risks identified at this time. ROS: 03/08 22:54 Constitutional: Negative for fever, chills, and weight loss, Eyes: Negative for injury, tw4 pain, redness, and discharge, Cardiovascular: Negative for chest pain, palpitations, and edema, Respiratory: Negative for shortness of breath, cough, wheezing, and pleuritic chest pain, Back: Negative for injury and pain, MS/Extremity: Negative for injury and deformity, Skin: Negative for injury, rash, and discoloration, Neuro: Negative for headache, weakness, numbness, tingling, and seizure. Abdomen/GI: Positive for abdominal pain, nausea and vomiting, Negative for abdominal cramps, abdominal distension, dysphagia, hematemesis, black/tarry stool, rectal pain. Exam: 22:54 Constitutional: This is a well developed, well nourished patient who is awake, alert, tw4 and in no acute distress. Head/Face: Normocephalic, atraumatic. Chest/axilla: Normal chest wall appearance and motion. Nontender with no deformity. No lesions are appreciated. Cardiovascular: Regular rate and rhythm with a normal S1 and S2. No gallops, murmurs, or rubs. Normal PMI, no JVD. No pulse deficits. Respiratory: Lungs have equal breath sounds bilaterally, clear to auscultation and percussion. No rales, rhonchi or wheezes noted. No increased work of breathing, no retractions or nasal flaring. Abdomen/GI: Soft, non-tender, with normal bowel sounds. No distension or tympany. No guarding or rebound. No evidence of tenderness throughout. Back: No spinal tenderness. No costovertebral tenderness. Full range of motion. MS/ Extremity: Pulses equal, no cyanosis. Neurovascular intact. Full, normal range of motion. Neuro: Awake and alert, GCS 15, oriented to person, place, time, and situation. Cranial nerves II-XII grossly intact. Motor strength 5/5 in all extremities. Sensory grossly intact. Cerebellar exam normal. Normal gait. Vital Signs: 03/07 20:56 BP 134 / 81; Pulse 64; Resp 18; Temp 98.7(O); Pulse Ox 100% on R/A; Weight 77.11 kg jb4 (R); Height 5 ft. 9 in. (175.26 cm) (R); Pain 7/10; 22:15 BP 143 / 79; Pulse 62; Resp 18; Pulse Ox 96% on R/A; jb4 23:15 BP 128 / 71; Pulse 61; Resp 16; Pulse Ox 100% on R/A; jb4 20:56 Body Mass Index 25.10 (77.11 kg, 175.26 cm) jb4 MDM: 21:08 Patient medically screened. tw4 03/08 22:54 Differential diagnosis: bowel obstruction, GI Bleed, Hepatitis, Peptic Ulcer Disease, tw4 Perf. Duodenal Ulcer, Perf. Gastric Ulcer. Data reviewed: vital signs, nurses notes. Data interpreted: Pulse oximetry: Interpretation: normal. Counseling: I had a detailed discussion with the patient and/or guardian regarding: the historical points, exam findings, and any diagnostic results supporting the discharge/admit diagnosis, lab results, radiology results. Medication response: Zofran markedly relieved the patient's nausea. Response to treatment: the patient's symptoms have mildly improved after treatment. Special discussion: Based on the patient's Hx, exam, and Dx evaluation, there is no indication for emergent surgery or inpatient Tx. It is understood by the patient/guardian that if the Sx's persist or worsen they need to return immediately for re-evaluation. I discussed with the patient/guardian in detail that at this point there is no indication for admission to the hospital. It is understood, however, that if the symptoms persist or worsen the patient needs to return immediately for re-evaluation. 03/07 21:09 Order name: Basic Metabolic Panel tw 03/07 21:09 Order name: CBC with Diff tw4 03/07 21: Order name: Creatinine for Radiology; Complete Time: 23:25 tw4 03/07 23:25 Interpretation: Within normal limits. tw4 03/07 21:09 Order name: Hepatic Function; Complete Time: 22:30 tw4 03/07 23:25 Interpretation: Normal except: GLOB 3.9; A/G 0.9. tw4 03/07 21:09 Order name: Lipase; Complete Time: 23:25 tw4 03/07 21:09 Order name: Basic Metabolic Panel [facility] 03/07 21: Order name: CBC with Automated Diff; Complete Time: 23:24 EDPR 03/07 23:24 Interpretation: Normal except: HGB 8.3; HCT 26.7; RBC 3.63; WBC 4.7; MCV 73.7; MCH tw4 22.9; MCHC 31.0; RDW 21.7. 03/07 21:15 Order name: CT Abd/Pelvis - Without Cont tw4 03/07 22:35 Order name: CBC Smear Scan EDPR 03/07 23:50 Order name: Glucose, Ancillary Testing EDPR 03/07 21:09 Order name: IV Saline Lock; Complete Time: :23 tw4 03/07 21:09 Order name: Labs collected and sent; Complete Time: : tw4 Administered Medications: 03/07 21:32 Drug: Zofran 4 mg Route: IVP; Site: left antecubital; jb4 22:00 Follow up: Response: No adverse reaction; Nausea is decreased jb4 21:47 Drug: NS 0.9% 1000 ml Route: IV; Rate: 1 bolus; Site: left antecubital; jb4 23:00 Follow up: Response: No adverse reaction; IV Status: Completed infusion; IV Intake: jb4 1000ml 22:53 Drug: D50W 25 ml Route: IVP; Site: left antecubital; jb4 23:54 Follow up: Response: No adverse reaction; Marked relief of symptoms jb4 22:57 Drug: Phenergan 12.5 mg Route: IVP; Site: left antecubital; jb4 23:20 Follow up: Response: No adverse reaction; Nausea is decreased jb4 Point of Care Testing: Blood Glucose: 20:56 Blood Glucose: 73 mg/dL; jb4 23:24 Blood Glucose: 136 mg/dL; jb4 Ranges: Critical Glucose Levels:Adult <50 mg/dl or >400 mg/dl <40 mg/dl or >180 mg/dl Disposition: 03/07/19 23:30 Discharged to Home. Impression: Vomiting, unspecified, Abdominal tenderness. - Condition is Stable. - Discharge Instructions: Abdominal Pain, Adult, Nausea and Vomiting, Adult, [id number]. - Prescriptions for Bentyl 20 mg Oral Tablet - take 1 tablet by ORAL route every 6 hours As needed; 20 tablet. promethazine 25 mg Oral Tablet - take 1 tablet by ORAL route every 6 hours As needed; 20 tablet. - Medication Reconciliation Form, Thank You Letter, Antibiotic Education, Prescription Opioid Use form. - Follow up: Private Physician; When: Upon discharge from the Emergency Department; Reason: If symptoms return, Recheck today's complaints, Continuance of care. - Problem is new. - Symptoms have improved. Signatures: Dispatcher [employer] EDMS Quan Villagomez RN RN jb4 Jonnathan Larson MD MD tw4 Corrections: (The following items were deleted from the chart) 23:57 23:30 03/07/2019 23:30 Discharged to Home. Impression: Vomiting, unspecified; Abdominal jb4 tenderness. Condition is Stable. Forms are Medication Reconciliation Form, Thank You Letter, Antibiotic Education, Prescription Opioid Use. Follow up: Private Physician; When: Upon discharge from the Emergency Department; Reason: If symptoms return, Recheck today's complaints, Continuance of care. Problem is new. Symptoms have improved. tw4
--- NOTE | 2019-03-09 13:34 | RAD REPORT ---
EXAM DESCRIPTION: CT ABDOMEN AND PELVIS WITHOUT CONTRAST CLINICAL HISTORY: Generalized abdominal pain COMPARISON: None Available. TECHNIQUE: CT of the abdomen and pelvis without IV contrast. Evaluation of the solid organs and vasc ulature is suboptimal due to lack of IV contrast. FINDINGS: Lung Bases: Left lingular bulla. Calcified mediastinal lymph nodes. Minimal patchy right b asilar opacities. Bones: Left femoral fixation partially visualized. Degenerative change of the spine and hips. Abdomen: Liver: The liver has normal size and density. Gallbladder: Prior cholecystectomy. Spleen, Pancreas, and Adrenal Glands: The spleen, pancreas, and adrenal glands are unremarkable. Kidneys: The kidneys have normal size and contour without evidence of hydronephrosis. No obstructing ureteral calculi. Vasculature: Aortoiliac atherosclerosis. IVC is unremarkable. Stomach: Postoperative change of the stomach. Other: No free intraperitoneal air. Calcified mesenteric lymph nodes. No free fluid or lymphadenopa thy. Pelvis: Bladder: Urinary bladder is unremarkable. Bowel: No dilated loops of large or small bowel. Appendix: Not identified. Pelvis: Prior hysterectomy. IMPRESSION: 1. No acute inflammatory or obstructive process identified. This exam was performed according to our departmental dose-optimization program, which includes autom ated exposure control, adjustment of the mA and/or kV according to patient size and/or use of iterati ve reconstruction technique. Electronically signed by: Shahram Carolina 03/07/2019 10:50 PM CDT Due to temporary technical issues with the PACS/Fluency reporting system, reports are being signed by the in house radiologist as a courtesy to ensure prompt reporting. The interpreting radiologist is f ully responsible for the content of the report.
== END 2019-03-07 23:57 | disposition home or self-care (01) ==
LOC: ER 20:59
DX: R10.819 Abdominal tenderness, unspecified site (principal); E11.9 Type 2 diabetes mellitus without complications; F41.9 Anxiety disorder, unspecified; F32.9 Major depressive disorder, single episode, unspecified; F43.10 Post-traumatic stress disorder, unspecified; G40.909 Epilepsy, unspecified, not intractable, without status epilepticus; Z72.0 Tobacco use; Z88.0 Allergy status to penicillin; Z88.5 Allergy status to narcotic agent; Z88.6 Allergy status to analgesic agent; Z88.8 Allergy status to other drugs, medicaments and biological substances; Z85.72 Personal history of non-Hodgkin lymphomas
CPT/HCPCS: 96361; 85025; 80048; 36415; 82962 ×2; 80076; 83690; 74176; 96375; 96374; 99284; J2550; J7030; J2405